=== PATIENT | female | born 1960 | race Caucasian/White ===

== ENCOUNTER 2019-04-16 05:21 | Inpatient (IN) | payer OTHER ==
[2019-04-12 16:55] VITALS: BMI 37.5
--- NOTE | 2019-04-15 22:38 | PREAC ---
Date/Time of Note Date/Time of Note DATE: 04/15/19 TIME: 22:37 Anesthesia Eval and Record Evaluation Time Pre-Procedure Interview DATE: 04/15/19 TIME: 22:37 Age 58 Sex female NPO: 8 hrs (sip h20 with metoprolol and omeprazole) Preoperative diagnosis fibroids, cervical prolapse, cystocele, rectocele Planned procedure LELAND BSO vaginal vault suspension Past Medical History Past Medical History: Includes Cardio: HTN, Dyslipidemia Endo: Diabetes (glucose 123) Neuro: Peripheral neuropathy GI: GERD (no symptoms today), Obesity (bmi 37) Surgery & Anesthesia Issues No known issue Meds Anticoagulation: No Beta Jeremias within 24 hr: Yes Reported Medications Omeprazole* (Omeprazole*) 40 Mg Capsule.dr, 40 MG PO DAILY, #30 CAP 04/16/19 Ibuprofen* (Ibuprofen*) 800 Mg Tab, 800 MG PO Q6H PRN for PAIN, TAB 04/16/19 Aspirin Ec (Aspir 81) 81 Mg Tablet.dr, 81 MG PO DAILY, #30 TAB 04/16/19 Metoprolol Tartrate* (Lopressor*) 25 Mg Tablet, 25 MG PO BID, #60 TAB 04/16/19 Metformin Hcl* (Metformin Hcl*) 500 Mg Tablet, 500 MG PO WITH BREAKFAST DINNE, #30 TAB 04/16/19 Atorvastatin Calcium* (Atorvastatin Calcium*) 20 Mg Tablet, 20 MG PO QHS, #30 TAB 04/16/19 Cholecalciferol (Vitamin D3) (VITAMIN D-3) 2,000 Unit Capsule, 2000 UNIT PO, CAP 04/16/19 Losartan Potassium* (Losartan Potassium*) 50 Mg Tablet, 50 MG PO DAILY, TAB 04/16/19 Discontinued Reported Medications Omeprazole* (Omeprazole*) 40 Mg Capsule.dr, 40 MG PO DAILY, #30 CAP 04/16/19 Meds reviewed: Yes Allergies Coded Allergies: Penicillins (Verified Allergy, Unknown, 04/16/19) codeine (Verified Allergy, Unknown, 04/16/19) Allergies Reviewed: Yes Labs/Studies Labs Reviewed: Reviewed by anesthesiologist test: N/A Studies: ECG, CXR Pre-procedure Exam Airway: Adequate mouth opening, Adequate thyromental dist Mallampati: Mallampati II Teeth: Normal Lung: Normal Heart: Normal ASA Physical Status ASA physical status: 3 Emergency: None Planned Anesthetic General/MAC: ETT Planned Pain Management Parenteral pain med, Local by surgeon Pre-operative Attestations Prior to commencing anesthesia and surgery, the patient was re-evaluated, there was verification of: *The patient's identity *The results of appropriate recent lab work and preoperative vital signs *The above evaluation not changing prior to induction *Anesthetic plan, risk benefits, alternative and complications discussed with patient/family; questions answered; patient/family understands, accepts and wishes to proceed. KARSON DELGADO Apr 15, 2019 22:38
[~2019-04-16] VITALS: Ht 167.6 cm; Wt 103.4 kg
[2019-04-16] VITALS (34 sets, daily range): BP systolic 109–158; BP diastolic 66–94; PULSE 78–110; RESP 11–19; Ht 167.6 cm; Wt 103.4 kg
--- NOTE | 2019-04-16 04:51 | PREOPHP ---
DATE OF ADMISSION: 04/16/2019 HISTORY OF PRESENT ILLNESS: This is a 58-year-old lady, 8, para 5 with 2 abortions and 1 spo ntaneous . Her last normal menstrual period was in 2009. She was admitted for a total TAHBS O and vaginal vault suspension. The patient complains of something coming at introitus. She is know n to have a cervical prolapse. The uterus was noted not to be coming out except only for the cervix that is on the introitus. She also has a first degree rectocele. The patient is bothered and very u ncomfortable for this problem, so she wanted to have the above procedure. The procedures were explai [place] to the patient and she understood everything totally. The risks, benefits, and alternatives were discussed with her as well. PAST MEDICAL HISTORY: No history of TB, asthma. She has a history of diabetes, high blood pressure and arthritis. ALLERGIES: PATIENT IS ALLERGIC TO PENICILLIN. PAST SURGICAL HISTORY: She had arm surgery. FAMILY HISTORY: Mother and father have high blood pressure and father has heart disease. Mother has diabetes. Mother had ovarian cancer. GYNECOLOGIC HISTORY: She had menarche at the age of 11, every 28 days interval, 3 to 4 days duration , and moderate in amount. She is 8, para 5. She had 5 normal deliveries. REVIEW OF SYSTEMS: CARDIOVASCULAR: No chest pains. RESPIRATORY: No cough. GASTROINTESTINAL: No diarrhea, no vomiting. GENITOURINARY: No dysuria. PHYSICAL EXAMINATION: GENERAL: Reveals a conscious, coherent lady and in no acute distress. VITAL SIGNS: Her blood pressure 120/80, pulse rate 80 per minute, respirations 16 per minute. BREASTS, HEART AND LUNGS: Within normal limits. ABDOMEN: Soft. No organomegaly and obese. PELVIC: Revealed the cervix to be at the introitus and the uterus is in the pelvis. The adnexa were negative for masses. RECTAL: Confirmed the pelvic findings. EXTREMITIES: No pedal edema. ADMITTING DIAGNOSES: Cervical prolapse and symptomatic first degree rectocele and obesity. PLAN: The patient was planned to have the above procedures. Dictated By: BLADIMIR HUGO/OMKAR Conf#: [id number] DID#: [id number]
[2019-04-16] MEDS ORDERED: ASPI-535 PO (06:03)
[2019-04-16] MEDS ORDERED: METO25TA4 PO (06:03)
[2019-04-16] MEDS ORDERED: METF500T24 PO (06:03)
[2019-04-16] MEDS ORDERED: LOSA50TA14 PO (06:03)
[2019-04-16] MEDS ORDERED: ATOR20TA38 PO (06:03)
[2019-04-16] MEDS ORDERED: CHOL200073 PO (06:03)
[2019-04-16] MEDS ORDERED: IBUP-1545 PO (06:03)
[2019-04-16] MEDS ORDERED: OMEP40CA6 PO (06:03)
[2019-04-16] MEDS ORDERED: ROCURONIUM 50 MG INJ ONE (06:30)
[2019-04-16] MEDS ORDERED: CLINDAMYCIN 900 MG/D5W (PMX) 50 ML IVPB ONE (06:30)
[2019-04-16] MEDS ORDERED: LIDOCAINE 2% (SDV) 5 ML INJ ONE (06:30)
[2019-04-16] MEDS ORDERED: PROPOFOL 20 ML ONE ×2 (06:30→07:47)
[2019-04-16] MEDS ORDERED: MIDAZOLAM 1 MG/ML 2 ML INJ ONE (06:30)
[2019-04-16] MEDS ORDERED: HYDROmorphONE 2 MG/ML SYG ONE (06:30)
[2019-04-16] MEDS ORDERED: SOD CHLORIDE 0.9% 1,000 ML IV SCH (07:00)
[2019-04-16] MEDS ORDERED: DESFLURANE 15 MIN ONE (07:15)
[2019-04-16] MEDS ORDERED: LIDOCAINE 4% (MPF) 5 ML INJ ONE (07:17)
[2019-04-16] MEDS ORDERED: FAMOTIDINE 20 MG INJ ONE (07:39)
[2019-04-16] MEDS ORDERED: METOCLOPRAMIDE 10 MG INJ ONE (07:39)
[2019-04-16] MEDS ORDERED: DEXAMETHASONE 4 MG/ML 5 ML INJ ONE (07:39)
[2019-04-16] MEDS ORDERED: ONDANSETRON 4 MG INJ ONE (07:39)
[2019-04-16] MEDS ORDERED: MAGNESIUM SULFATE 1 GM/D5W 100 ML ONE (07:46)
[2019-04-16] MEDS ORDERED: ACETAMINOPHEN 500 MG TAB PO PRN (08:30)
[2019-04-16] MEDS ORDERED: MEPERIDINE 25 MG INJ IV PRN (08:30)
[2019-04-16] MEDS ORDERED: ONDANSETRON 4 MG INJ IV PRN ×2 (08:30→09:30)
[2019-04-16] MEDS ORDERED: HYDROmorphONE 0.2 MG/ML PCA IV SCH (08:30)
[2019-04-16] MEDS ORDERED: hydrALAzine 20 MG INJ IV PRN (08:30)
[2019-04-16] MEDS ORDERED: NALOXONE (0.4 MG/ML) INJ IV PRN (08:30)
[2019-04-16] MEDS ORDERED: METOCLOPRAMIDE 10 MG INJ IV PRN (08:30)
[2019-04-16] MEDS ORDERED: LABETALOL HCL 20MG INJ IV PRN (08:30)
[2019-04-16] MEDS ORDERED: OXYCODONE/ACETAMINOPHEN (5/325) TAB PO PRN (08:30)
[2019-04-16] MEDS ORDERED: SUGAMMADEX SODIUM 200 MG/2 ML VIAL IV ONE (08:35)
[2019-04-16] MEDS ORDERED: KETOROLAC 30 MG INJ ONE (08:36)
--- NOTE | 2019-04-16 09:13 | SIPON ---
Date/Time of Note Date/Time of Note DATE: 04/16/19 TIME: 09:06 Operative Report Preoperative Diagnosis cervical prolapse fibroids 1st degree rectocele obesity Postoperative Diagnosis same plus perineal relaxation Operation/Procedure Performed exploratory lap nancy&bso &vaginal vault suspension Surgeon see signature line miller head assistant wet process dr verma Anesthesia: general Estimated blood loss: 100 - 150 ml's Transfusion Required none Specimen 2 parts of cx&BODY OF UTERUS BOTH TUBES &OVARIES Grafts/Implants none Complications none BLADIMIR ECHEVERRIA MD Apr 16, 2019 09:13
[2019-04-16] MEDS ORDERED: LACTATED RINGER'S 1,000 ML IV SCH (09:14)
[2019-04-16] MEDS ORDERED: HYDROmorphONE 1 MG/5 ML IV SYRINGE IV ONE (09:30)
[2019-04-16] MEDS ORDERED: HYDROmorphONE 1 MG/5 ML IV SYRINGE IV PRN ×3 (10:00)
--- NOTE | 2019-04-16 10:13 | PAC ---
Date/Time of Note Date/Time of Note DATE: 04/16/19 TIME: 10:13 Post-Anesthesia Notes Post-Anesthesia Note Last documented vital signs Vital Signs Date Temp Pulse Resp B/P (MAP) Pulse Ox O2 O2 Flow FiO2 Time Delivery Rate 04/16/19 98.6 80 16 140/84 96 Mask 6.0 09:05 (102) Activity: WNL Respiratory function: WNL Cardiovascular function: WNL Mental status: Baseline Pain reasonably controlled: Yes Hydration appropriate: Yes Nausea/Vomiting absent: Yes KARSON DELGADO Apr 16, 2019 10:13
[2019-04-16] MEDS: DEXTROSE 5%-LR 1,000 ML IV SCH ×2 (11:08→18:53)
[2019-04-16] MEDS ORDERED: GLUCAGON 1 MG INJ IM PRN (12:30)
[2019-04-16] MEDS ORDERED: GLUCOSE GEL 15 GRAM TUBE PO PRN ×2 (12:30)
[2019-04-16] MEDS ORDERED: DEXTROSE 50% 50 ML SYRINGE IV PRN ×2 (12:30)
[2019-04-16] MEDS ORDERED: GLUCOSE GEL 15 GRAM TUBE BUCCAL PRN (12:30)
[2019-04-16] MEDS: INSULIN ASPART [NOVOLOG] 3 ML PEN SC SCH ×3 (15:07→20:51)
--- NOTE | 2019-04-16 19:26 | OPR ---
DATE OF OPERATION: 04/16/2019 PREOPERATIVE DIAGNOSES: 1. Cervical prolapse. 2. First degree rectocele. 3. Perineal relaxation. 4. Obesity. 5. Fibroid uterus. POSTOPERATIVE DIAGNOSES: 1. Cervical prolapse. 2. First degree rectocele. 3. Perineal relaxation. 4. Obesity. 5. Fibroid uterus. SURGEON: Clemencia Cobb MD YARN COMBER: Nahco Wu MD ANESTHESIA: General. OPERATION PERFORMED: Exploratory laparotomy, total abdominal hysterectomy and bilateral salpingo-oop horectomy, vaginal vault suspension. OPERATIVE TECHNIQUE: Under general anesthesia, the patient was prepped and draped in the usual fashi on for abdominal surgery. After checking for the effect of the anesthesia, a Pfannenstiel incision, 14 cm skin incision, was performed. The incision was carried from the skin up to the fascia. Upon o pening the skin up to the fascia, small blood vessels were noted to be oozing and these were all caut erized. The fascia was opened transversely followed by splitting the muscles vertical and the perito neum vertically. Upon opening the abdominal cavity, the upper abdominal organs were palpated. They were within normal limits. Then, the self-retaining retractor was put in place. The bladder blade w as put in place. The bowels were packed away from the operative field with the aid of 5 wet lap spon ges and the upper blade was put in place. The uterus was pulled out from the pelvic cavity with the aid of a single tooth tenaculum. It was noted to be about 12 weeks' size with multiple fibroids note d. Then, two 8-inch Kochers were placed at each paratubal and paraovarian ligament on both sides for traction. The left round ligament was grasped with 2 Kochers then cut. A stick tie with 0 Vicryl w as used and tagged. The left broad ligament was skeletonized for the development of the bladder flap and then the left infundibulopelvic ligament was grasped with 2 Angel clamps and pulled back with a straight Gracie and cut. At first, a free tie with 0 Vicryl was used followed by Angel suture. Bl eeders were checked and there was no bleeding noted. Same thing was done on the right side. The rig ht round ligament was grasped with 2 Kochers and cut. A stick tie with 0 Vicryl was used and tied. The right broad ligament was skeletonized for the development of the bladder flap. The right infundi bulopelvic ligament was grasped with 2 Angel clamps and pulled back with a straight Gracie and cut. At first, a free tie with 0 Vicryl was used followed by Angel suture. Bleeders were checked and th ere was no bleeding noted. Once again, the broad ligament on both sides was skeletonized for develop ment of the bladder flap. Then, the bladder was from the cervix by sharp and blunt dissect ion. Then, the left uterine vessels were brought to view. The left uterine vessels were grasped wit h 2 Angel clamps and pulled back with a straight Gracie and cut. A stick tie with 0 Vicryl was used on its clamp. Bleeders were checked and there was no bleeding noted. Same thing was done on the ri ght side. No bleeding was noted. Once again, the bladder was from the cervix by sharp and blunt dissection. Two more Kochers were placed at each paracervical tissue on the left and right si de and on each Gracie, the tissue was cut and a stick tie with 0 Vicryl was used. Bleeders were chec ked and there was no bleeding noted. The pelvis was noted to be very deep. The body of the uterus w as excised and the remaining cervix was grasped with 2 single tooth tenaculum. Once again, the bladd er was from the cervix by sharp and blunt dissection. About 4 more Kochers were placed at its paracervical tissue on the left and right side and on each Gracie, the tissue was cut and a stick tie with 0 Vicryl was used. Bleeders were checked and there was no bleeding noted. As mentioned, t he pelvis was noted to be very deep. Then, another piece of cervix was excised and the remaining cer vix was grasped with 2 single tooth tenaculum. Once again, the bladder was from the cervix by sharp and blunt dissection. Four more Kochers were placed at its paracervical tissue on the left and right side and on each Gracie, the tissue was cut and a stick tie with 0 Vicryl was used. Bleed ers were checked and there was no bleeding noted. The left uterosacral ligament was grasped with Koc her and cut. A stick tie with 0 Vicryl was used and tied. Same thing was done on the right side and then the cervical vaginal angle was brought to view. The cervical vaginal angle was grasped with 2 Angel clamps and then the remaining cervix was excised. Angel suture was placed on each clamp. An other continuous suture with 0 Vicryl was used at the vaginal cuff to reinforce the first suture that was put in. The right angle of the vagina was sutured with the right paracervical tissue and after checking for any bleeders in which there were none, in turn tied with the right ligament for vaginal vault suspension. Same thing was done on the left side. Again, bleeders were checked and there was no bleeding noted. Irrigation was done to check for any bleeders and there was no bleeding noted. A ll the stumps were checked for any bleeders and there was no bleeding noted. Then after checking for the bleeders in which there were none, 2 Surgicel was left at the raw area at the vaginal cuff and o n the stump. Then after correct sponge count, needle count and instrument count as confirmed by the business services tech and precinct police sergeant, the abdomen was closed in the usual fashion using 0 Vicryl for the periton eum, 0 Vicryl for the muscles. For the fascia, 0 Vicryl continuous stitch was used followed by few f [id number] sutures. For the subcutaneous tissue, it was closed with 3-0 Vicryl and the skin was closed with 3-0 Vicryl, subcuticular suture was used. The patient tolerated the procedure well. Est imated blood loss about was 200 mL. Vital signs were stable during and after the procedure. The rom soledad was as mentioned has multiple fibroids noted and uterus was about 12 weeks' size. Dictated By: CLEMENCIA HUGO/OMKAR Conf#: [id number] DID#: [id number]
[2019-04-17] MEDS: INSULIN ASPART [NOVOLOG] 3 ML PEN SC SCH ×6 (00:58→21:00)
[2019-04-17] MEDS ORDERED: ACCU-CHEK XX SCH (02:00)
[2019-04-17] MEDS: DEXTROSE 5%-LR 1,000 ML IV SCH ×3 (03:31→21:52)
[2019-04-17 03:41] VITALS: BP 138/74; PULSE 92; RESP 20
[2019-04-17] MEDS ORDERED: BISACODYL 10 MG SUPP PR ONE ×2 (06:00→17:00)
[2019-04-17] MEDS ORDERED: MAGNESIUM HYDROXIDE 30ML CUP PO ONE ×2 (06:00→17:00)
[2019-04-17 08:20] VITALS: BP 138/73; PULSE 94; RESP 20
[2019-04-17] MEDS ORDERED: HYDROmorphONE 0.5 MG/0.5 ML SYG IV PRN (08:30)
[2019-04-17] MEDS ORDERED: LACTULOSE 30ML CUP PO ONE (13:00)
[2019-04-17] MEDS: OXYCODONE/ACETAMINOPHEN (5/325) TAB PO PRN ×2 (15:07→20:52)
[2019-04-17] MEDS ORDERED: IBUPROFEN 800 MG TAB PO PRN (18:00)
[2019-04-17 19:35] VITALS: BP 177/90; PULSE 88; RESP 20
[2019-04-17 21:57] VITALS: BP 155/78; PULSE 95; RESP 16
[2019-04-18] VITALS (8 sets, daily range): BP systolic 147–180; BP diastolic 79–88; PULSE 87–100; RESP 16–20
[2019-04-18] MEDS: INSULIN ASPART [NOVOLOG] 3 ML PEN SC SCH ×5 (01:00→20:19)
[2019-04-18] MEDS: OXYCODONE/ACETAMINOPHEN (5/325) TAB PO PRN ×3 (02:34→12:58)
[2019-04-18] MEDS: DEXTROSE 5%-LR 1,000 ML IV SCH ×2 (05:56→12:59)
[2019-04-18] MEDS ORDERED: BISACODYL 10 MG SUPP PR ONE (08:30)
[2019-04-18] MEDS ORDERED: hydrALAzine 20 MG INJ IV ONE (08:30)
[2019-04-18] MEDS ORDERED: MAGNESIUM HYDROXIDE 30ML CUP PO ONE (08:30)
[2019-04-18] MEDS: METOPROLOL 25 MG TAB PO SCH ×2 (08:59→20:16)
[2019-04-18] MEDS ORDERED: LOSARTAN 50 MG TAB PO SCH (09:00)
--- NOTE | 2019-04-21 17:45 | PN ---
DATE: 04/17/2019 TIME: 8:50 a.m. SUBJECTIVE: The patient complains of incisional pain. She has no gas per rectum and no bowel moveme nt. OBJECTIVE: VITAL SIGNS: She is afebrile. Vital signs stable. LUNGS: Clear. HEART: Normal sinus rhythm. ABDOMEN: Soft. Bowel sounds present. No distention. Wound dry and clean. EXTREMITIES: No calf tenderness. ASSESSMENT AND PLAN: Postoperative day 1. PLAN: Advance diet as tolerated. Repeat Dulcolax suppository and milk of brian akins. Long di scussion with the patient about her procedure and the plans for her. Dictated By: BLADIMIR ECHEVERRIA MD NS/NTS Conf#: [id number] DID#: [id number] CC: BLADIMIR ECHEVERRIA MD;*EndCC*
--- NOTE | 2019-04-21 17:46 | PN ---
DATE: 04/18/2019 TIME OF PROGRESS NOTE: 11:15 a.m. SUBJECTIVE: The patient feels better. She had a little bowel movement but is passing a lot of gas. She has less incisional pain. OBJECTIVE: VITAL SIGNS: She is afebrile. Vital signs stable. ABDOMEN: Soft. Bowel sounds good and dry. No distention. EXTREMITIES: No calf tenderness. ASSESSMENT: Postoperative day 2. PLAN: Home tonight. Continue to observe. Patient was counseled. She was instructed. She has pain medication that was given to her prior to surgery. She will come back to the clinic in 2 weeks. Nayeli carrera was discharged home in good state. She will be discharged unless she has problem with bowel moveme nt. Dictated By: BLADIMIR ECHEVERRIA MD NS/NTS Conf#: [id number] DID#: [id number] CC: BLADIMIR ECHEVERRIA MD;*EndCC*
== END 2019-04-18 20:54 | disposition home or self-care (01) | DRG 743 ==
LOC: REC 05:21 → MS1 10:34
PROVIDERS: ADMIT Obstetrics & Gynecology; ATTEND Obstetrics & Gynecology
PROC: 0UT20ZZ Resection of Bilateral Ovaries, Open Approach (ICD-10-PCS; 2019-04-16)
PROC: 0USG0ZZ Reposition Vagina, Open Approach (ICD-10-PCS; 2019-04-16)
PROC: 0UT90ZZ Resection of Uterus, Open Approach (ICD-10-PCS; principal; 2019-04-16 07:30)
DX: N81.89 Other female genital prolapse (principal); E11.42 Type 2 diabetes mellitus with diabetic polyneuropathy; N81.2 Incomplete uterovaginal prolapse; I10 Essential (primary) hypertension; E78.5 Hyperlipidemia, unspecified; E11.9 Type 2 diabetes mellitus without complications; K21.9 Gastro-esophageal reflux disease without esophagitis; D25.1 Intramural leiomyoma of uterus; D25.2 Subserosal leiomyoma of uterus; Z79.4 Long term (current) use of insulin
CPT/HCPCS: 80053; 82962; 84702; 85025; 86850; 86900; 86901; 87086; 88307; J0360; J1100; J1170; J1815; J1885; J2250; J2405; J2765; J3475; J7121

== ENCOUNTER 2019-04-21 16:46 | Inpatient (IN) | payer OTHER ==
[~2019-04-21] VITALS: Ht 167.6 cm; Wt 96.1 kg
[~2019-04-21 16:46] MED LIST: ASPI-535 PO; ATOR20TA38 PO; CHOL200073 PO; IBUP-1545 PO; LOSA50TA14 PO; METF500T24 PO; METO25TA4 PO; OMEP40CA6 PO
[2019-04-21] MEDS ORDERED: SODIUM CHLORIDE 0.9% 1L BAG IV* STA (17:00)
[2019-04-21] MEDS ORDERED: LEVOFLOXACIN 500MG/D5W (PMX) 100 ML IVPB STA (17:00)
[2019-04-21] MEDS ORDERED: VANCOMYCIN 1 GM (PMX) 250 ML IVPB STA (17:00)
[2019-04-21] MEDS ORDERED: metroNIDAZOLE 500 MG/NS (PMX) 100 ML IVPB STA (17:00)
--- NOTE | 2019-04-21 17:07 | ERD ---
ER Documentation Chief Complaint Chief Complaint SOB TODAY, HYSTERECTOMY 4 DAYS AGO, ALSO SHOULDER PAIN HPI 58-year-old female history of diabetes, hypertension, hyperlipidemia, GERD, peripheral neuropathy, obesity and cervical prolapse status post LELAND/BSO on 04/16/2019 presents to the ED complaining of a 1 day history of increasing, sharp, right chest pain with shortness of breath and subjective fevers. Denies chest pain or palpitations. Mild, diffuse, upper abdominal pain but no nausea, vomiting, diarrhea or constipation. Denies dysuria, polyuria, hematuria or flank pain. No leg pain or swelling. Subjective fevers and chills. ROS All systems reviewed and are negative except as per history of present illness. Medications Home Meds Reported Medications Omeprazole* (Omeprazole*) 40 Mg Capsule.dr, 40 MG PO DAILY, #30 CAP 04/16/19 Ibuprofen* (Ibuprofen*) 800 Mg Tab, 800 MG PO Q6H PRN for PAIN, TAB 04/16/19 Aspirin Ec (Aspir 81) 81 Mg Tablet.dr, 81 MG PO DAILY, #30 TAB 04/16/19 Metoprolol Tartrate* (Lopressor*) 25 Mg Tablet, 25 MG PO BID, #60 TAB 04/16/19 Metformin Hcl* (Metformin Hcl*) 500 Mg Tablet, 500 MG PO WITH BREAKFAST DINNE, #30 TAB 04/16/19 Atorvastatin Calcium* (Atorvastatin Calcium*) 20 Mg Tablet, 20 MG PO QHS, #30 TAB 04/16/19 Cholecalciferol (Vitamin D3) (VITAMIN D-3) 2,000 Unit Capsule, 2000 UNIT PO, CAP 04/16/19 Losartan Potassium* (Losartan Potassium*) 50 Mg Tablet, 50 MG PO DAILY, TAB 04/16/19 Discontinued Reported Medications Omeprazole* (Omeprazole*) 40 Mg Capsule.dr, 40 MG PO DAILY, #30 CAP 04/16/19 Allergies Allergies: Coded Allergies: Penicillins (Verified Allergy, Unknown, 04/21/19) codeine (Verified Allergy, Unknown, 04/21/19) PMhx/Soc History of Surgery: Yes (LT FOREARM PLATE & SCEWS X2/ BLADDER LIFT/) Hx Neurological Disorder: Yes (Peripheral neuropathy) Hx Cardiac Disorders: Yes (Hypertension) Hx Miscellaneous Medical Probl: Yes (Diabetes, hyperlipidemia, GERD) Hx Substance Use: No FmHx Family history relevant to presenting complaint Physical Exam Vitals Vital Signs Date Temp Pulse Resp B/P (MAP) Pulse Ox O2 O2 Flow FiO2 Time Delivery Rate 04/21/19 102.8 135 23 147/82 97 Room Air 18:30 (103) 04/21/19 102.8 17:53 04/21/19 102.8 138 23 147/78 97 Room Air 17:10 (101) 04/21/19 100.6 143 28 161/82 94 16:50 (108) Physical Exam Const: Alert. Moderate to severe distress Head: Atraumatic Eyes: Anicteric. Normal Conjunctiva ENT: Normal External Ears, Nose and Mouth. Pharynx clear without erythema or exudate. MM moist. Neck: Nontender. No lymphadenopathy. Full range of motion. No meningismus. Resp: Tachypnea. BS diminished at the bases. Clear to auscultation bilaterally. No rales or rhonchi. Cardio: Tachycardic. Regular rate and rhythm, no murmurs Abd: Soft, obese. Diffuse, moderate tenderness localizes to RLQ > RUQ. Distended. No guarding. Mils rebound. Normal bowel sounds Skin: No petechiae or rashes Back: No midline or CVA tenderness Ext: No cyanosis, or edema. No calf swelling or tenderness. Neur: Awake and alert. No focal deficit. Psych: Anxious but not depressed. Result Diagram: 04/23/1925 04/23/1925 Results 24 hrs Laboratory Tests Test 04/21/19 17:15 04/21/19 17:16 04/21/19 17:17 POC Venous Lactate 4.2 mmol/L Prothrombin Time 14.7 Sec Prothrombin Time Ratio 1.1 INR International 1.14 Normalized Ratio Activated Partial Thromboplast 32.0 Sec Time D-Dimer 5604.74 ng/ml D-Dimer Comment Sodium Level 139 mmol/L Potassium Level 3.4 mmol/L Chloride Level 102 mmol/L Carbon Dioxide Level 24 mmol/L Anion Gap 13 Blood Urea Nitrogen 16 mg/dl Creatinine 0.89 mg/dl Est Glomerular Filtrat > 60 mL/min Rate mL/min Glucose Level 164 mg/dl Calcium Level 9.0 mg/dl Total Bilirubin 0.9 mg/dl Direct Bilirubin 0.00 mg/dl Indirect Bilirubin 0.9 mg/dl Aspartate Amino 27 IU/L Transf (AST/SGOT) Alanine 20 IU/L Aminotransferase (ALT/SGPT) Alkaline Phosphatase 184 IU/L Troponin I < 0.012 ng/ml Total Protein 7.6 g/dl Albumin 3.7 g/dl Globulin 3.90 g/dl Albumin/Globulin Ratio 0.94 White Blood Count 21.6 10^3/ul Red Blood Count 4.19 10^6/ul Hemoglobin 11.8 g/dl Hematocrit 37.0 % Mean Corpuscular Volume 88.3 fl Mean Corpuscular Hemoglobin 28.2 pg Mean Corpuscular 31.9 g/dl Hemoglobin Concent Red Cell Distribution Width 14.5 % Platelet Count 345 10^3/UL Mean Platelet Volume 10.9 fl Immature Granulocytes % 0.800 % Neutrophils % 83.9 % Lymphocytes % 6.7 % Monocytes % 7.7 % Eosinophils % 0.7 % Basophils % 0.2 % Nucleated Red Blood Cells % 0.0 /100WBC Immature Granulocytes # 0.180 10^3/ul Neutrophils # 18.2 10^3/ul Lymphocytes # 1.4 10^3/ul Monocytes # 1.7 10^3/ul Eosinophils # 0.2 10^3/ul Basophils # 0.1 10^3/ul Nucleated Red Blood Cells # 0.0 10^3/ul Urine Color SANDRINE Urine Clarity CLEAR Urine pH 5.0 Urine Specific [place] 1.028 Urine Ketones NEGATIVE mg/dL Urine Nitrite NEGATIVE mg/dL Urine Bilirubin NEGATIVE mg/dL Urine Urobilinogen NEGATIVE mg/dL Urine Leukocyte Esterase NEGATIVE Jatin/ul Urine Microscopic RBC 4 /HPF Urine Microscopic WBC 3 /HPF Urine Squamous Epithelial Cells FEW /HPF Urine Bacteria FEW /HPF Urine Mucus FEW /HPF Urine Hemoglobin 1+ mg/dL Urine Glucose NEGATIVE mg/dL Urine Total Protein 1+ mg/dl Current Medications Medications Dose Sig/Samira Start Time Status Last (Trade) Ordered Route PRN Stop Time Admin Dose Reason Admin Sodium 1,780 ml BOLUS OVER 2 04/21/19 DC 04/21/19 Chloride HOURS STAT 17:00 17:23 (NS) IV* 04/21/19 17:07 Vancomycin 250 ml @ ONCE STAT 04/21/19 DC 04/21/19 HCl 125 mls/hr IVPB 17:00 19:00 04/21/19 18:59 100 ml @ ONCE STAT 04/21/19 DC 04/21/19 Levofloxacin/ 100 mls/hr IVPB 17:00 17:24 Dextrose 04/21/19 17:59 100 ml @ ONCE STAT 04/21/19 DC 04/21/19 Metronidazole 100 mls/hr IVPB 17:00 18:10 04/21/19 17:59 650 mg ONCE ONCE 04/21/19 DC 04/21/19 Acetaminophen PO 18:00 17:53 (Tylenol 04/21/19 18:01 Tab) 50 ml @ 50 ONCE ONCE 04/21/19 DC 04/21/19 Levofloxacin/ mls/hr IVPB 18:30 19:30 Dextrose 04/21/19 19:29 IV Flush 10 ml STK-MED 04/21/19 DC 04/21/19 (NS 10 ml) ONCE .ROUTE 18:22 19:11 04/21/19 18:23 Sodium 100 ml @ ud STK-MED 04/21/19 DC 04/21/19 Chloride ONCE .ROUTE 18:22 19:11 04/21/19 18:23 Iohexol 150 ml STK-MED 04/21/19 DC 04/21/19 (Omnipaque ONCE .ROUTE 18:22 19:11 300mg/ ml) 04/21/19 18:23 Iohexol 30 ml STK-MED 04/21/19 DC (Omnipaque ONCE .ROUTE 18:36 300mg/ ml) 04/21/19 18:37 Procedures/MDM DOCUMENTS REVIEWED: ED nurse, prior records EKG: Time: 1724. Sinus tachycardia. Ventricular rate 144. Normal NH QRS. Nonspecific ST-T wave changes. No acute ST segment elevation depression. No ectopy. My Interpretation IMAGING: PROCEDURE: XR Chest. CLINICAL INDICATION: Chest pain. TECHNIQUE: Single frontal view. COMPARISON: None. FINDINGS: There is mild left basilar atelectasis. The lungs are otherwise clear. The heart size is normal. There is no pleural effusion. There is no pneumothorax. IMPRESSION: 1. Mild left basilar atelectasis. 2. Otherwise unremarkable chest radiograph. RPTAT: QQ .Horacio Peoples MD, MD Date Time Electronically viewed and signed by .Horacio Peoples MD, MD on 04/21/2019 17:45 .R/ PROCEDURE: CT abdomen and pelvis with contrast. CLINICAL INDICATION: Abdominal pain, postop, with fever. TECHNIQUE: CT scan of the abdomen and pelvis with contrast was performed. C oronal and sagittal images were also reformatted. 115 cc Omnipaque -300 intravenous contrast was administered without complication. DICOM images are available. One or more of the following dose reduction techniques were used: Automated exposure control, adjustment of the mA and/or kV according to patient size, use of iterative reconstruction technique. Total exam CTDIvol = 71.99 mGy and DLP = 1901.88 mGy-cm. COMPARISON: None. FINDINGS: Visualized lower thorax: Please see the separate CT angiogram chest report Liver, gallbladder, pancreas and spleen: Mild hepatic steatosis is suggested with normal liver size and contour. There is no evidence for liver mass or ductal dilatation. The gallbladder is distended with calcified gallstones consistent with cholelithiasis but no evidence of cholecystitis. An incidental phrygian cap is present. No common bile duct dilatation is evident. The pancreas is normal. Mild splenomegaly of 14 cm is noted without splenic mass or infarct. Adrenal glands and genitourinary system: The adrenal glands are normal bilaterally. Mild bilateral renal cortex scarring is seen without acute pyelonephritis, mass, calculus or hydronephrosis. The ureters are unremarkable. The urinary bladder shows no abnormality. Hysterectomy changes are noted. Posterior to the pelvic clips and anterior to the rectum with in the center of the pelvis are multiple punctate foci of gas with a peripherally enhancing and centrally hypodense parentheses 10 HU) collection that may reflect a postoperative seroma however, given the provided history of fever, a p ostoperative abscess is of concern, the abnormality estimated at 7.6 x 7 x 6.9 cm in AP, transverse and cranial caudal dimensions respectively (series 6 image 171). Gastrointestinal system: A [id number]-[id number] sliding hiatal hernia is present, the remainder of the stomach is unremarkable. There is no evidence of obstruction, ileus or inflammation. The appendix and surrounding fat are normal . A few diverticula of the colon are present but there is no evidence for diverticulitis or colitis. A small fat-containing umbilical hernia is noted. Peritoneum, retroperitoneum, vessels and lymph nodes: The abdominal aorta is normal in caliber. There is mild aortic atherosclerotic calcification. Inferior vena cava is normal in caliber. There is no evidence for adenopathy. The peritoneal cavity is normal with no evidence for ascites. There is no evidence of pneumoperitoneum. Osseous structures and musculoskeletal system: There is no evidence for acute osseous abnormality or muscular pathology. Degenerative disc disease is greatest at L4-5 and L5-S1. No subcutaneous abnormalities are present. RPTAT:HJJR IMPRESSION: 1. Changes of hysterectomy with a peripherally enhancing centrally hypodense collection centered in the pelvis having punctate foci of internal gas and raising concern for an abscess given the provided history of fever, the abnormality estimated at 7.6 x 7 x 6.9 cm located anterior to the rectum. Consider consultation to determine if the patient may be a candidate for percutaneous drainage/aspiration. Results are conveyed to the patient's health care providers through the [employer] technology shortly after the study is dictated. 2. Mild hepatic steatosis. 3. Cholelithiasis without cholecystitis. 4. Mild splenomegaly. 5. Bilateral renal cortex scarring without acute pyelonephritis. 6. Cxdagjnl-va-ferus hiatal hernia. 7. Aortic atherosclerosis is present. 8. Degenerative disc disease at L4-5 and L5-S1. 9. Small fat-containing umbilical hernia. Physician Gordy Date Time Electronically viewed and signed by Physician Gordy on 04/21/2019 19:20 JR/ [employer] DECISION MAKIN-year-old female history of diabetes, hypertension, hyperlipidemia, GERD, peripheral neuropathy, obesity and cervical prolapse status post LELAND/BSO on 04/16/2019 presents to the ED complaining of a 1 day history of increasing, sharp, right chest pain with shortness of breath and subjective fevers. CBC to evaluate for leukocytosis and anemia reveals WBC of 21.6 and mild anemia but no thrombocytopenia. Chemistry negative for significant electrolyte abnormality, renal insufficiency or hyperglycemia. Chest x-ray shows atelectasis but no effusions, infiltrate, pneumonia, pneumothorax or CHF. CT of the abdomen pelvis with intravenous contrast reveals a fluid collection anterior to the rectum suspicious for abscess. Multiple SIRS criteria including fever, leukocytosis, tachycardia and tachypnea. Umbag-vh-ifdp lactate is 4.2 mmol/L consistent with septic shock. NS fluid bolus and antibiotics after cultures. Findings discussed with Dr. Cobb. She has decided to treat with intravenous antibiotics and reevaluate tomorrow. Patient's infectious symptoms have not stabilized and the patient is at risk of rapid decompensation. The patient will be admitted to telemetry for careful hydration, antibiotic therapy, and infectious source control. Severe Sepsis criteria: Infectious source: Intra-abdominal End organ damage indicated by: Lactate > 2.0 mmol/L Sepsis Management: Time of recognition of severe sepsis: 17:15 Within 3 hours of recognition: Blood cultures x 2 before broad-spectrum antibiotics: Yes 30 ml/kg NS bolus based on ideal body weight in this patient with a BMI of 35.6 Completed Initial lactate 4.2 mmol/L Repeat lactate 2.0 mmol/L Septic Shock Assessment: Any lactic acid > 4.0 Yes Persistent hypotension (SBP < 90 or 40 mmHg drop, MAP < 65) despite 30 mL/kg IV fluid bolus: No Central line Not Indicated CALLS/CONSULTS: Time: 18:00, Dr. Cobb who has evaluated the patient in the emergency department. Accepting Care Team Current data and ongoing care discussed. PATIENT CARE TRANSITIONED: Time: 19:10, Dr. Shaw. Critical Care Time: 35 minutes Treatments/Evaluations: Close monitoring and treatment of unstable vital signs, cardiorespiratory, and neurologic status, while maintaining tight balance of fluid, respiratory, and cardiac interventions. This includes the administration of emergency fluid management while maintaining close respiratory support as well as the provision of immediate and broad-spectrum antibiotic therapy, while performing a simultaneous assessment for possible sources in order to direct targeted therapy. This time includes discussing the case with the patient and the patient's family. This time also includes the consideration for invasive and chemical support to prevent cardiopulmonary collapse. This time does not include all procedures stated elsewhere in this record. This time also includes reviewing old records, labs and radiological studies. This time includes examining and re-examining the patient. Additionally, this time also includes arranging care with admitting and consulting physicians. Counseled patient and family regarding diagnosis, diagnostic results and plan for admission. Departure Diagnosis: Primary Impression: Septic shock Additional Impressions: SIRS (systemic inflammatory response syndrome) Status post hysterectomy Intra-abdominal fluid collection Cholelithiasis Cholelithiasis location: gallbladder Cholecystitis presence: without cholecystitis Biliary obstruction: without biliary obstruction Qualified Codes: K80.20 - Calculus of gallbladder without cholecystitis without obstruction Condition: Serious GORDO ISBELL MD Apr 21, 2019 17:07
[2019-04-21] MEDS ORDERED: ACETAMINOPHEN 325 MG TAB PO ONE (18:00)
[2019-04-21] MEDS ORDERED: SOD CHLORIDE 0.9% 100 ML ONE (18:22)
[2019-04-21] MEDS ORDERED: IOHEXOL 300MG/ML 150 ML BTL ONE (18:22)
[2019-04-21] MEDS ORDERED: LEVOFLOXACIN 250MG/D5W (PMX) 50 ML IVPB ONE (18:30)
[2019-04-21] MEDS ORDERED: IOHEXOL 300MG/ML 30 ML BTL ONE (18:36)
[2019-04-21] MEDS ORDERED: ONDANSETRON 4 MG INJ IV PRN ×2 (19:30→22:00)
[2019-04-21] MEDS ORDERED: ACETAMINOPHEN 325 MG TAB PO PRN (19:30)
[2019-04-21] MEDS ORDERED: KETOROLAC 15 MG INJ IV STA (19:50)
[2019-04-21] MEDS ORDERED: NACL 0.9% 3 ML SYG IV SCH (22:00)
[2019-04-21] MEDS ORDERED: DOCUSATE SODIUM 100 MG CAP PO PRN (22:00)
[2019-04-21] MEDS ORDERED: SOD CHLORIDE 0.9% 500 ML IV ONE (22:00)
[2019-04-21] MEDS ORDERED: VANCOMYCIN IV PER PHARMACY XX SCH (22:00)
--- NOTE | 2019-04-21 22:11 | PREOPHP ---
DATE OF ADMISSION: 04/21/2019 HISTORY OF PRESENT ILLNESS: This is a 58-year-old lady, 8, para 5 with 2 abortions and 1 spo ntaneous . Her last normal menstrual period was in 2009. She was seen at the emergency room by me because I was called by the emergency room doctor that this patient started to have a right lo wer quadrant pain radiating to the right upper abdomen to the upper chest and right arm. This patien t had a total abdominal hysterectomy, bilateral salpingo-oophorectomy, vaginal vault suspension on for cervical prolapse, first degree rectocele, perineal relaxation and a fibroid uterus. Th e patient did have a good postoperative course. The diet was advanced from liquid to general diet. On the second postoperative day, the patient felt good and had good bowel movement and no complaint a nd no chest pain, so she was discharged home. Her CBC was stable on the first and second postoperati ve day and hematocrit and hemoglobin were noted. PAST MEDICAL HISTORY: No history of TB or asthma. She has a history of diabetes, high blood pressur e and arthritis. ALLERGIES: PENICILLIN. PAST SURGICAL HISTORY: She had arm surgery before. FAMILY HISTORY: Mother and father have high blood pressure and father has heart disease. Mother has diabetes and had ovarian cancer. GYNECOLOGIC HISTORY: She had menarche at the age of 11, every 28 days interval, 3 to 4 days duration , and moderate in amount. She is 8, para 5 with 5 normal deliveries. REVIEW OF SYSTEMS: CARDIOVASCULAR: No chest pains. RESPIRATORY: When I saw the patient, there is no shortness of breath. GASTROINTESTINAL: No diarrhea, no vomiting. GENITOURINARY: No dysuria. PHYSICAL EXAMINATION: GENERAL: Reveals a conscious, coherent lady and in no acute distress. VITAL SIGNS: Her blood pressure 140/90, pulse rate 135 per minute and respiration 18 per minute. BREASTS: No masses felt. LUNGS: There are rales noted at the base of the lungs. ABDOMEN: Soft and wound dry and clean. There is some ecchymosis noted on the lower mid portion of t he abdomen above the incision measuring about 5 x 5 cm. BACK: No tenderness noted. EXTREMITIES: No calf tenderness. IMPRESSION: This patient is a post-LELAND and BSO and vaginal vault suspension 5 days with sepsis. Her WBC in the emergency room is 20,000. She had a fever on admission of 100.6. The patient was having no more pain as she was given pain medication. When I arrived at the emergency room, I reviewed the CT of the abdomen with the radiologist. The CT of the chest showed some bilateral lobar atelectasis . She has some gallstones and radiologist wanted to have an abdominal ultrasound to further describe where the gallstones were. There is no pneumonia according to the radiologist and PE according to h im cannot be ruled out. She has hiatal hernia as well in the lower abdomen. There is no sign of hem atoma on the pelvis. There is a little amount of fluid in the pelvis. There is no sign of abscess o n the subcutaneous tissue. ASSESSMENT: TAHBSO and vaginal vault suspension 5 days, rule out cholecystitis, also atelectasis and also hiatal hernia. PLAN: The patient was put on Flagyl, Levaquin and vancomycin. The plans were explained to the patie nt and to her family and all understood everything totally. Dictated By: BLADIMIR HUGO/OMKAR Conf#: [id number] DID#: [id number]
[2019-04-21] MEDS ORDERED: GLUCAGON 1 MG INJ IM PRN (22:30)
[2019-04-21] MEDS ORDERED: GLUCOSE GEL 15 GRAM TUBE PO PRN ×2 (22:30)
[2019-04-21] MEDS ORDERED: DEXTROSE 50% 50 ML SYRINGE IV PRN ×2 (22:30)
[2019-04-21] MEDS ORDERED: GLUCOSE GEL 15 GRAM TUBE BUCCAL PRN (22:30)
[2019-04-21] MEDS: MEROPENEM 1 GM/50ML(PMX) 50 ML IVPB SCH (22:36)
[2019-04-21] MEDS: SOD CHLORIDE 0.9% 1,000 ML IV SCH (22:36)
[2019-04-21] MEDS ORDERED: VANCOMYCIN 1 GM 250 ML IVPB SCH (23:30)
[2019-04-22] VITALS (7 sets, daily range): BP systolic 138–185; BP diastolic 73–89; PULSE 89–102; RESP 16–19; Ht 167.6 cm; Wt 96.1 kg
[2019-04-22] MEDS: ACCU-CHEK XX SCH (02:00)
[2019-04-22] MEDS: PANTOPRAZOLE (EC) 40 MG TAB PO SCH (05:49)
[2019-04-22] MEDS: INSULIN ASPART [NOVOLOG] 3 ML PEN SC SCH ×4 (08:00→21:00)
[2019-04-22] MEDS: SOD CHLORIDE 0.9% 1,000 ML IV SCH ×2 (08:06→17:34)
[2019-04-22] MEDS: MEROPENEM 1 GM/50ML(PMX) 50 ML IVPB SCH ×2 (08:06→21:23)
[2019-04-22] MEDS ORDERED: POTASSIUM CHLORIDE (SR) 20 MEQ TAB PO STA (10:39)
--- NOTE | 2019-04-22 10:39 | QN ---
Documentation Comment pt seen and examined ANITRA IVAN MD Apr 22, 2019 10:39
[2019-04-22] MEDS ORDERED: traMADol 50 MG TAB NGT PRN (11:00)
[2019-04-22] MEDS ORDERED: KETOROLAC 30 MG INJ IV PRN (11:00)
[2019-04-22] MEDS: VANCOMYCIN 1 GM 250 ML IVPB SCH (12:09)
[2019-04-22] MEDS: METOPROLOL 25 MG TAB PO SCH ×2 (12:10→21:23)
[2019-04-22] MEDS: ASPIRIN (EC) 81 MG TAB PO SCH (12:10)
[2019-04-22] MEDS: LOSARTAN 50 MG TAB PO SCH (12:11)
--- NOTE | 2019-04-22 12:17 | HP ---
DATE OF ADMISSION: 04/21/2019 REASON FOR ADMISSION: Back pain and shortness of breath. HISTORY OF PRESENT ILLNESS: This is a 58-year-old female with past medical history of diabetes, hype rtension, GERD who was recently admitted by Dr. Cobb, on 04/16/2019 had cervical prolapse first de gree rectocele, had exploratory lap LELAND/BSO and vaginal vault suspension. According to the notes, th e patient had a good postoperative course. On the second postoperative day, the patient felt good an d no fevers and was discharged home. On discharge, the white count was 12.0. However, according to the patient when she went home, next day she started having pain in her lower back and then in the mays rgical site area. Next day she noted to have fever of 101. Then, the pain went to her right shoulde r and then she started feeling shortness of breath and was brought into the Emergency Department for further evaluation. On arrival to the ED, vital signs had shown initial temperature of 102, heart ra te was 140, blood pressure was 161/82. White count was 21.6, BUN and creatinine within normal limit. The patient had a chest x-ray that showed mild left basilar atelectasis. Patient had a CT of the a bdomen and pelvis that showed changes of hysterectomy with peripherally enhancing central hypodense c ollection in the pelvis, raising concern for an abscess. However, the patient has been seen by Dr. Ashlee raygoza and it was not thought patient needed any surgical intervention. The patient was treated with NS, had vancomycin and Levaquin and Flagyl and was admitted for further management. PAST MEDICAL HISTORY: 1. Diabetes. 2. Hypertension. 3. Obesity. 4. GERD. 5. Arthritis. ALLERGIES: 1. PENICILLINS 2. CODEINE. HOME MEDICATIONS: 1. Metformin 500 b.i.d. 2. Prilosec 40. 3. Cholecalciferol. 4. Ibuprofen. 5. Aspirin 81. 6. Metoprolol 25 b.i.d. 7. Losartan 50. 8. Atorvastatin 20. PAST SURGICAL HISTORY: The patient had left arm surgery, status post fall and had repair. SOCIAL HISTORY: Denies history of smoking, alcohol or any drug use. Currently lives with family. FAMILY HISTORY: Noncontributory. REVIEW OF SYSTEMS: The patient complained of back pain, right upper and right lower quadrant pain, s ome shortness of breath. Denied any cough. Had fevers at home. Patient was urinating every few min utes. Denies any abdominal pain, nausea. Denied any nausea, vomiting, diarrhea. Denied any rash. Denies any hematemesis, any melena, any blood per rectum. PHYSICAL EXAMINATION: VITAL SIGNS: Temperature 102, currently 97.1. Initial pulse was 143, currently 92, respiratory rate 16, blood pressure 142/77, saturating 100% on room air. GENERAL: The patient is awake, alert, oriented, does not appear to be in any acute distress. HEENT: Pupils equal, round, reactive to light. NECK: Supple, no JVD. HEART: Tachycardic. LUNGS: Decreased breath sounds bilaterally. ABDOMEN: Some tenderness present in the right upper quadrant and right lower quadrant. Positive bow el sounds. EXTREMITIES: No clubbing, cyanosis, or edema. SKIN: No rash. Patient had some tenderness in the bilateral flanks. DIAGNOSTIC DATA: Sodium 141, potassium 3.0, chloride 107, bicarbonate 25, BUN of 13, creatinine 0.8. LFTs within normal limit. Alkaline phosphatase was 184, AST was 27, ALT of 27. Troponin less than 0.012. Lipase was 49. White count was 21.6, hemoglobin 11.8, platelet count 345. UA showed 1+ hem oglobin, few bacteria. IMAGING: Patient had a chest x-ray which was essentially negative. CT of the abdomen and pelvis as above with mild cholecystectomy steatosis, cholelithiasis without cholecystitis, mild splenomegaly, b ilateral renal cortical scarring without acute pyelonephritis, moderate to large hiatal hernia, containing umbilical hernia. CT thorax: No evidence of pulmonary embolism, right greater than left posterior lobe segmental atelectasis, hiatal hernia. Gallbladder ultrasound. Mild diffuse increase d hepatic echogenicity consider hepatic cirrhosis, cholelithiasis. ASSESSMENT AND PLAN: This is a 58-year-old female with: 1. Severe sepsis with fevers, tachycardia could be secondary to questionable abscess on the CT of th e abdomen and pelvis. The patient is status post a total abdominal hysterectomy plus BSU versus UTI. Urine culture growing gram-negative rods. The patient with shortness of breath. No evidence of pn eumonia on x-ray. However, the patient could have some component of atelectasis postop. 2. Elevated D-dimer; however, CT angio is negative for pulmonary embolism. 3. Cholelithiasis without evidence of cholecystitis. 4. Moderate hiatal hernia. 5. Obesity. 6. Diabetes. 7. Hypertension. 8. Hyperlipidemia 9. Hypokalemia. PLAN: At this period of time, the patient is admitted to [facility]. The patient is given aggressive IV f luids. The patient has already and has boluses. Currently the patient is feeling much better. We will start the patient on vancomycin and meropenem. ID will also be consulted. We will resume t he patient's home blood pressure medications and diabetic medications. Dr. Cobb already saw the p atient in the ER and there was no indication of any surgical intervention. Rest of the treatment edgar l depend on the patient's hospitalization course. Dictated By: ANITRA CHRISTIANSON/OMKAR Conf#: [id number] DID#: [id number]
--- NOTE | 2019-04-22 17:35 | CONS ---
DATE OF ADMISSION: 04/21/2019 DATE OF CONSULTATION: 04/22/2019 TYPE OF CONSULTATION: Infectious Disease. REASON FOR CONSULTATION: Antibiotic management. HISTORY OF PRESENT ILLNESS: The patient is a 58-year-old female with numerous problems and comes in with shortness of breath. She had a history of hysterectomy 4 days ago and complains of shoulder casandra n as well. Her past problems include: 1. Diabetes. 2. Hypertension. 3. Hyperlipidemia. 4. GERD. 5. Peripheral neuropathy. 6. Obesity. 7. Cervical prolapse. 8. Status post total abdominal hysterectomy and BSO on 04/16/2019. She presents with a 1 day histor y of increasing sharp right-sided chest pain with shortness of breath and subjective fevers. She den ies chest pain. She has mildly diffuse upper abdominal pain, but no nausea, vomiting, constipation, or diarrhea. No dysuria, pyuria, hematuria or flank pain. She has subjective fever and chills. Past problems include left forearm plate and screws x2. She also had a bladder lift. Past problems also include peripheral neuropathy, hypertension, diabetes, hyperlipidemia and GERD as previously outlined. PAST MEDICAL HISTORY: As outlined. FAMILY HISTORY: Noncontributory. SOCIAL HISTORY: She does not smoke, drink or abuse drugs. ALLERGIES: 1. PENICILLIN. 2. CODEINE. NONE TO SULFA OR FOODS. MEDICATIONS: Per chart. REVIEW OF SYSTEMS: As per HPI. MEDICATIONS: Per chart. REVIEW OF SYSTEMS: As per HPI. VITAL SIGNS: On admission, her vital signs were 100, T-max 102.8. LABORATORY DATA: White count 21.6, H and H of 11.8 and 37, platelet count 345,000. BUN and creatini ne 16/0.89, glucose of 164. She had 84% neutrophils. Urinalysis negative for nitrites and leukocyte esterase. HOSPITAL COURSE: The patient was started on vancomycin, Levaquin and Metronidazole. She had sinus tachycardia with a rate of 144. A chest x-ray showed mild left basilar atelectasis. L ungs clear. Heart within normal limits. Mild left basilar atelectasis. CT scan of the abdomen and pelvis showed changes of hysterectomy with peripherally enhancing central hypodense collection center ed in the pelvis having punctate foci of internal gas raising concern for an abscess given the provid ed history of fever. The abnormality is 7.6 x 7 x 6.9 cm located anterior to the rectum. Consider c onsultation to determine the patient may be a candidate for percutaneous drainage or aspiration. The patient has mild hepatic steatosis, cholelithiasis without cholecystitis, mild splenomegaly, bilater al renal cortex scarring without acute pyelonephritis, moderate to large hiatal hernia, aortic athero sclerosis is present, degenerative disk disease, small fat-containing umbilical hernia. Findings wer e discussed with Dr. Cobb. The patient was seen by Dr. Cobb. ASSESSMENT: CT of the chest that showed bilateral lobar atelectasis. She had gallstones and the rad iologist wanted to have an abdominal ultrasound to further describe where the gallstones were. There was no pneumonia. She has hiatal hernia. There are no signs of hematoma on the pelvis. A little a mount of fluid in the pelvis and no sign of abscess of the subcutaneous tissues. She was seen by Dr. Shaw today for back pain and shortness of breath. The patient has severe sepsis with fever, tachy cardia which could be secondary to questionable abscess on the CT scan of the abdomen and pelvis. Ur ine culture growing gram-negative rods. The patient with shortness of breath. No evidence of pneumo la on x-ray. She could have some component of atelectasis postoperatively. PHYSICAL EXAMINATION: VITAL SIGNS: Her temperature was up to 102. Vital signs are stable. Her pulse was 143, currently 9 2. She had signs of SIRS when she came in. SKIN: Without generalized rash. She has some tenderness on her flanks. HEENT: Within normal limits. NECK: Supple. LYMPH NODES: None palpable. CHEST: Decreased breath sounds at the bases. HEART: Tachycardic without murmur or gallop. ABDOMEN: Soft. She has some tenderness in the right upper quadrant and right lower quadrants. EXTREMITIES: Without cyanosis, clubbing, or edema. RECTAL AND GENITAL: Deferred. NEUROLOGIC: No focal neurological abnormality. IMPRESSION AND PLAN: The patient is in telemetry feeling better. She is on vancomycin and meropenem . ID consulted. At present time, no evidence for surgical intervention. I will dictate my findings to Dr. Shaw and Dr. Cobb. Dictated By: MILIND HERZOG MD, JD/OMKAR Conf#: [id number] DID#: [id number] CC: ANITRA SHAW;*End*
[2019-04-22] MEDS: ACETAMINOPHEN 325 MG TAB PO PRN (19:05)
[2019-04-22] MEDS: ATORVASTATIN 20 MG TAB PO SCH (21:23)
--- NOTE | 2019-04-22 22:59 | PN ---
DATE: 04/22/2019 TIME OF PROGRESS NOTE: 2:00 p.m. SUBJECTIVE: The patient feels better, no shortness of breath and accepts that she is here complainin g of back pain and according to her because of being in bed. No right shoulder pain and no right upp er quadrant pain. She had good bowel movement. She has good urine output. OBJECTIVE VITAL SIGNS: She is afebrile since 4:00 a.m. today 04/22/2019. Vital signs are stable. ABDOMEN: Soft. Bowel sounds good. Wound dry. Some ecchymosis noted on the lower mid portion of th e abdomen above the incision. VAGINAL: Pelvic exam revealed the vaginal cuff to be intact and no definite masses felt. Again, the exam was difficult due to obesity. RECTAL: Confirmed the pelvic findings. EXTREMITIES: No calf tenderness. ASSESSMENT AND PLAN: Post total abdominal hysterectomy and bilateral salpingo-oophorectomy 6 days. PLAN: I advised that we should continue with the present antibiotics. Her CBC that was done today, the WBC was 11,000. Hemoglobin of 9, hematocrit 28.9. It went down from 21,000 to 11,000 today. Th e patient feels better, so we will repeat her CBC and CMP tomorrow. May repeat her CT in 2 days. Dictated By: BLADIMIR HUGO/OMKAR Conf#: [id number] DID#: [id number] CC: ANITRA IVAN;*EndCC*
[2019-04-23 00:21] VITALS: BP 138/74; PULSE 85; RESP 18
[2019-04-23] MEDS: SOD CHLORIDE 0.9% 1,000 ML IV SCH ×3 (00:42→17:44)
[2019-04-23] MEDS: VANCOMYCIN 1 GM 250 ML IVPB SCH ×2 (00:42→12:13)
[2019-04-23] MEDS: ACCU-CHEK XX SCH (02:00)
[2019-04-23 04:03] VITALS: BP 142/78; PULSE 93; RESP 18
[2019-04-23] MEDS: PANTOPRAZOLE (EC) 40 MG TAB PO SCH (06:44)
[2019-04-23 07:14] VITALS: BP 167/82; PULSE 91; RESP 20
[2019-04-23] MEDS: INSULIN ASPART [NOVOLOG] 3 ML PEN SC SCH ×4 (07:40→20:51)
[2019-04-23] MEDS: ACETAMINOPHEN 325 MG TAB PO PRN (08:10)
[2019-04-23] MEDS: MEROPENEM 1 GM/50ML(PMX) 50 ML IVPB SCH ×2 (08:12→20:46)
[2019-04-23] MEDS: METOPROLOL 25 MG TAB PO SCH ×2 (08:14→20:46)
[2019-04-23] MEDS: ASPIRIN (EC) 81 MG TAB PO SCH (08:14)
[2019-04-23] MEDS: LOSARTAN 50 MG TAB PO SCH (08:15)
[2019-04-23] MEDS ORDERED: POTASSIUM CHLORIDE (SR) 20 MEQ TAB PO STA (10:39)
[2019-04-23 11:17] VITALS: BP 170/87; PULSE 83; RESP 22
--- NOTE | 2019-04-23 12:50 | PN ---
Date/Time of Note Date/Time of Note DATE: 04/23/19 TIME: 12:50 Assessment/Plan VTE Prophylaxis Risk score (from Ns)>0 risk: 4 SCD applied (from [facility] [place]): No SCD contraindicated: low risk/ambulating Pharmacological prophylaxis: NA/contraindicated Pharm contraindication: low risk/ambulating Lines/Catheters IV Catheter Type (from [facility]): Peripheral IV Urinary Cath still in place: No Assessment/Plan Assessment/Plan is is a 58-year-old female with: 1. Severe sepsis with fevers, tachycardia could be secondary to questionable abscess on the CT of the abdomen and pelvis. The patient is status post a total abdominal hysterectomy plus BSO versus UTI. Urine culture growing gram-negative rods. +Klebsiella The patient with shortness of breath. No evidence of pneumonia on x-ray. However, the patient could have some component of atelectasis postop. 2. Elevated D-dimer; however, CT angio is negative for pulmonary embolism. 3. Cholelithiasis without evidence of cholecystitis. 4. Moderate hiatal hernia. 5. Obesity. 6. Diabetes. 7. Hypertension. Uncontrolled today exacerbated by pain 8. Hyperlipidemia 9. Hypokalemia. Plan -Ibuprofen as needed headache -Decrease NS -Continue with metoprolol/losartan -Hydralazine PRN -Continue with vancomycin and meropenem blood cultures have been negative so far will follow with ID recommendations -Repeat CAT scan tomorrow and chest x-ray Result Diagram: 04/23/19 0525 04/23/19 0525 Results 24hrs Laboratory Tests Test 04/22/19 17:21 04/22/19 21:22 04/23/19 05:25 04/23/19 07:37 Bedside Glucose 88 107 113 White Blood Count 9.0 Red Blood Count 3.33 L Hemoglobin 9.1 L Hematocrit 28.7 L Mean Corpuscular Volume 86.2 Mean Corpuscular 27.3 L Hemoglobin Mean Corpuscular 31.7 L Hemoglobin Concent Red Cell Distribution 14.6 H Width Platelet Count 210 Mean Platelet Volume 10.3 Immature Granulocytes % 0.900 H Neutrophils % 75.8 Lymphocytes % 11.2 L Monocytes % 8.0 Eosinophils % 3.9 Basophils % 0.2 Nucleated Red Blood 0.0 Cells % Immature Granulocytes # 0.080 H Neutrophils # 6.8 Lymphocytes # 1.0 Monocytes # 0.7 Eosinophils # 0.4 Basophils # 0.0 Nucleated Red Blood 0.0 Cells # Sodium Level 140 Potassium Level 3.2 L Chloride Level 108 Carbon Dioxide Level 25 Anion Gap 7 Blood Urea Nitrogen 8 Creatinine 0.67 Est Glomerular Filtrat > 60 Rate mL/min Glucose Level 103 Calcium Level 8.2 L Phosphorus Level 3.4 Magnesium Level 2.0 Total Bilirubin 0.5 Direct Bilirubin 0.00 Indirect Bilirubin 0.5 Aspartate Amino 12 L Transf (AST/SGOT) Alanine 22 Aminotransferase (ALT/SG PT) Alkaline Phosphatase 106 Total Protein 5.5 L Albumin 2.6 L Globulin 2.90 Albumin/Globulin Ratio 0.89 Test 04/23/19 10:50 04/23/19 11:36 Vancomycin Level Trough 7.5 L Bedside Glucose 118 Subjective 24 Hr Interval Summary Free Text/Dictation Slight headache today. BP over 160 No fevers. Pain has been improving Exam/Review of Systems Exam Vitals Vital Signs Date Temp Pulse Resp B/P (MAP) Pulse Ox O2 O2 Flow FiO2 Time Delivery Rate 04/23/19 98.3 83 22 170/87 95 11:17 (114) 04/23/19 Room Air 04:03 Intake and Output 04/22/19 04/22/19 04/23/19 1515:00 23:00 07:00 IntakeIntake Total 1650 ml 2020 ml BalanceBalance 1650 ml 2020 ml Exam GENERAL: The patient is awake, alert, oriented, does not appear to be in any acute distress. HEENT: Pupils equal, round, reactive to light. NECK: Supple, no JVD. HEART: regular breath sounds b/l LUNGS: CTAB ABDOMEN: Some tenderness present in the right upper quadrant and right lower quadrant improved Positive bowel sounds. EXTREMITIES: No clubbing, cyanosis, or edema. SKIN: No rash. Patient had some tenderness in the bilateral flanks.decreased Results Results 24hrs Laboratory Tests Test 04/22/19 17:21 04/22/19 21:22 04/23/19 05:25 04/23/19 07:37 Bedside Glucose 88 107 113 White Blood Count 9.0 Red Blood Count 3.33 L Hemoglobin 9.1 L Hematocrit 28.7 L Mean Corpuscular Volume 86.2 Mean Corpuscular 27.3 L Hemoglobin Mean Corpuscular 31.7 L Hemoglobin Concent Red Cell Distribution 14.6 H Width Platelet Count 210 Mean Platelet Volume 10.3 Immature Granulocytes % 0.900 H Neutrophils % 75.8 Lymphocytes % 11.2 L Monocytes % 8.0 Eosinophils % 3.9 Basophils % 0.2 Nucleated Red Blood 0.0 Cells % Immature Granulocytes # 0.080 H Neutrophils # 6.8 Lymphocytes # 1.0 Monocytes # 0.7 Eosinophils # 0.4 Basophils # 0.0 Nucleated Red Blood 0.0 Cells # Sodium Level 140 Potassium Level 3.2 L Chloride Level 108 Carbon Dioxide Level 25 Anion Gap 7 Blood Urea Nitrogen 8 Creatinine 0.67 Est Glomerular Filtrat > 60 Rate mL/min Glucose Level 103 Calcium Level 8.2 L Phosphorus Level 3.4 Magnesium Level 2.0 Total Bilirubin 0.5 Direct Bilirubin 0.00 Indirect Bilirubin 0.5 Aspartate Amino 12 L Transf (AST/SGOT) Alanine 22 Aminotransferase (ALT/SG PT) Alkaline Phosphatase 106 Total Protein 5.5 L Albumin 2.6 L Globulin 2.90 Albumin/Globulin Ratio 0.89 Test 04/23/19 10:50 04/23/19 11:36 Vancomycin Level Trough 7.5 L Bedside Glucose 118 Medications Medication Current Medications Sodium Chloride 1,000 ml @ 50 mls/hr Q20H IV Last administered on 04/23/19at 00:42; Admin Dose 100 MLS/HR; Start 04/21/19 at 21:34 IV Flush (NS 3 ml) 3 ml PER PROTOCOL IV ; Start 04/21/19 at 22:00 Ondansetron HCl (Zofran Inj) 4 mg Q6H PRN IV NAUSEA/VOMITING; Start 04/21/19 at 22:00 Acetaminophen (Tylenol Tab) 650 mg Q6H PRN PO .PAIN 1-3 OR TEMP Last administered on 04/23/19at 08:10; Admin Dose 650 MG; Start 04/21/19 at 22:00 Docusate Sodium (Colace) 100 mg Q12H PRN PO .CONSTIPATION; Start 04/21/19 at 22:00 Pantoprazole (Protonix Tab) 40 mg DAILY@06 PO Last administered on 04/23/19at 06:44; Admin Dose 40 MG; Start 04/22/19 at 06:00 Vancomycin HCl (Vanco Iv Per Pharmacy) VANCOMYCIN PER PHARMACY PER PROTOCOL XX ; Start 04/21/19 at 22:00 Meropenem/Sodium Chloride 50 ml @ 100 mls/hr Q12 IVPB Last administered on 04/23/19at 08:12; Admin Dose 100 MLS/HR; Start 04/21/19 at 22:00 Diagnostic Test (Pha) (Accu-Chek) 1 ea 02 XX ; Start 04/22/19 at 02:00 Insulin Aspart (Novolog Insulin Pen) NOVOLOG *MILD* ALGORITHM WITH MEALS BEDTIME SC ; Start 04/22/19 at 08:00 Miscellaneous Information 1 ea NOTE XX ; Start 04/21/19 at 22:30 Glucose (Glutose) 15 gm Q15M PRN PO DECREASED GLUCOSE; Start 04/21/19 at 22:30 Glucose (Glutose) 22.5 gm Q15M PRN PO DECREASED GLUCOSE; Start 04/21/19 at 22:30 Dextrose (D50w Syringe) 25 ml Q15M PRN IV DECREASED GLUCOSE; Start 04/21/19 at 22:30 Dextrose (D50w Syringe) 50 ml Q15M PRN IV DECREASED GLUCOSE; Start 04/21/19 at 22:30 Glucagon (Glucagen) 1 mg Q15M PRN IM DECREASED GLUCOSE; Start 04/21/19 at 22:30 Glucose (Glutose) 15 gm Q15M PRN BUCCAL DECREASED GLUCOSE; Start 04/21/19 at 22:30 Vancomycin HCl 250 ml @ 125 mls/hr Q12H IVPB Last administered on 04/23/19at 12:13; Admin Dose 125 MLS/HR; Start 04/22/19 at 12:00 Aspirin (Halfprin) 81 mg DAILY PO Last administered on 04/23/19at 08:14; Admin Dose 81 MG; Start 04/22/19 at 11:00 Atorvastatin Calcium (Lipitor) 20 mg QHS PO Last administered on 04/22/19at 21:23; Admin Dose 20 MG; Start 04/22/19 at 21:00 Losartan Potassium (Cozaar) 50 mg DAILY PO Last administered on 04/23/19at 08:15; Admin Dose 50 MG; Start 04/22/19 at 11:00 Metoprolol Tartrate (Lopressor) 25 mg BID PO Last administered on 04/23/19at 08:14; Admin Dose 25 MG; Start 04/22/19 at 11:00 Ketorolac Tromethamine (Toradol) 30 mg Q6H PRN IV PAIN LEVEL 7-10; Start 04/22/19 at 11:00; Stop 04/25/19 at 10:59 Tramadol HCl (Ultram) 50 mg Q6 PRN NGT PAIN LEVEL 6-10 Last administered on 04/22/19at 12:22; Admin Dose 50 MG; Start 04/22/19 at 11:00 Ibuprofen (Motrin) 400 mg Q6H PRN PO MILD PAIN(1-3) OR TEMP>38C; Start 04/23/19 at 13:00; Status ANITRA WAN MD Apr 23, 2019 12:50
[2019-04-23] MEDS: IBUPROFEN 400 MG TAB PO PRN ×2 (13:33→19:01)
--- NOTE | 2019-04-23 15:04 | CONS ---
Assessment/Plan Assessment/Plan Hospital Course (Demo Recall) Patient is awake looks comfortable no fevers overnight denies pain. WBC 9 H&H 9.1 and 28.7 platelets 210 neutrophils 75.8 BUN 8 creatinine 0.67 Microbiology: Blood cultures negative, urine culture grew Klebsiella 20,000 colonies Allergies: Penicillin Antimicrobials: Vancomycin, meropenem Physical examination: Obese well-developed middle-aged woman who is alert in no distress. Head atraumatic normocephalic. Neck is supple chest rise symmetrical breath sounds clear. Heart: S1-S2. Abdomen soft bowel sounds present. Extremities without cyanosis. Assessment: 1. Status post sepsis 2. Status post UTI 3. Status post recent total abdominal hysterectomy plus BSO 4. Obesity 5. Diabetes Plan: Patient remains stable and overall improving, no evidence of acute cholecystitis per CT, no evidence for pyelonephritis, patient is being seen by surgery, will discontinue vancomycin keep her on meropenem for now Consultation Date/Type/Reason Admit Date/Time Apr 21, 2019 at 19:05 Initial Consult Date Type of Consult id Date/Time of Note DATE: 04/23/19 TIME: 15:03 Exam/Review of Systems Exam Vitals Vital Signs Date Temp Pulse Resp B/P (MAP) Pulse Ox O2 O2 Flow FiO2 Time Delivery Rate 04/23/19 98.3 83 22 170/87 95 11:17 (114) 04/23/19 Room Air 04:03 Intake and Output 04/22/19 04/22/19 04/23/19 1515:00 23:00 07:00 IntakeIntake Total 1650 ml 2020 ml BalanceBalance 1650 ml 2020 ml Results Result Diagram: 04/23/19 0525 04/23/19 0525 Results 24hrs Laboratory Tests Test 04/22/19 17:21 04/22/19 21:22 04/23/19 05:25 04/23/19 07:37 Bedside Glucose 88 107 113 White Blood Count 9.0 Red Blood Count 3.33 L Hemoglobin 9.1 L Hematocrit 28.7 L Mean Corpuscular Volume 86.2 Mean Corpuscular 27.3 L Hemoglobin Mean Corpuscular 31.7 L Hemoglobin Concent Red Cell Distribution 14.6 H Width Platelet Count 210 Mean Platelet Volume 10.3 Immature Granulocytes % 0.900 H Neutrophils % 75.8 Lymphocytes % 11.2 L Monocytes % 8.0 Eosinophils % 3.9 Basophils % 0.2 Nucleated Red Blood 0.0 Cells % Immature Granulocytes # 0.080 H Neutrophils # 6.8 Lymphocytes # 1.0 Monocytes # 0.7 Eosinophils # 0.4 Basophils # 0.0 Nucleated Red Blood 0.0 Cells # Sodium Level 140 Potassium Level 3.2 L Chloride Level 108 Carbon Dioxide Level 25 Anion Gap 7 Blood Urea Nitrogen 8 Creatinine 0.67 Est Glomerular Filtrat > 60 Rate mL/min Glucose Level 103 Calcium Level 8.2 L Phosphorus Level 3.4 Magnesium Level 2.0 Total Bilirubin 0.5 Direct Bilirubin 0.00 Indirect Bilirubin 0.5 Aspartate Amino 12 L Transf (AST/SGOT) Alanine 22 Aminotransferase (ALT/SG PT) Alkaline Phosphatase 106 Total Protein 5.5 L Albumin 2.6 L Globulin 2.90 Albumin/Globulin Ratio 0.89 Test 04/23/19 10:50 04/23/19 11:36 Vancomycin Level Trough 7.5 L Bedside Glucose 118 Medications Medication Current Medications Sodium Chloride 1,000 ml @ 50 mls/hr Q20H IV Last administered on 04/23/19at 00:42; Admin Dose 100 MLS/HR; Start 04/21/19 at 21:34 IV Flush (NS 3 ml) 3 ml PER PROTOCOL IV ; Start 04/21/19 at 22:00 Ondansetron HCl (Zofran Inj) 4 mg Q6H PRN IV NAUSEA/VOMITING; Start 04/21/19 at 22:00 Acetaminophen (Tylenol Tab) 650 mg Q6H PRN PO .PAIN 1-3 OR TEMP Last administered on 04/23/19at 08:10; Admin Dose 650 MG; Start 04/21/19 at 22:00 Docusate Sodium (Colace) 100 mg Q12H PRN PO .CONSTIPATION; Start 04/21/19 at 22:00 Pantoprazole (Protonix Tab) 40 mg DAILY@06 PO Last administered on 04/23/19at 06:44; Admin Dose 40 MG; Start 04/22/19 at 06:00 Vancomycin HCl (Vanco Iv Per Pharmacy) VANCOMYCIN PER PHARMACY PER PROTOCOL XX ; Start 04/21/19 at 22:00 Meropenem/Sodium Chloride 50 ml @ 100 mls/hr Q12 IVPB Last administered on 04/23/19at 08:12; Admin Dose 100 MLS/HR; Start 04/21/19 at 22:00 Diagnostic Test (Pha) (Accu-Chek) 1 ea 02 XX ; Start 04/22/19 at 02:00 Insulin Aspart (Novolog Insulin Pen) NOVOLOG *MILD* ALGORITHM WITH MEALS BEDTIME SC ; Start 04/22/19 at 08:00 Miscellaneous Information 1 ea NOTE XX ; Start 04/21/19 at 22:30 Glucose (Glutose) 15 gm Q15M PRN PO DECREASED GLUCOSE; Start 04/21/19 at 22:30 Glucose (Glutose) 22.5 gm Q15M PRN PO DECREASED GLUCOSE; Start 04/21/19 at 22:30 Dextrose (D50w Syringe) 25 ml Q15M PRN IV DECREASED GLUCOSE; Start 04/21/19 at 22:30 Dextrose (D50w Syringe) 50 ml Q15M PRN IV DECREASED GLUCOSE; Start 04/21/19 at 22:30 Glucagon (Glucagen) 1 mg Q15M PRN IM DECREASED GLUCOSE; Start 04/21/19 at 22:30 Glucose (Glutose) 15 gm Q15M PRN BUCCAL DECREASED GLUCOSE; Start 04/21/19 at 22:30 Aspirin (Halfprin) 81 mg DAILY PO Last administered on 04/23/19at 08:14; Admin Dose 81 MG; Start 04/22/19 at 11:00 Atorvastatin Calcium (Lipitor) 20 mg QHS PO Last administered on 04/22/19at 21:23; Admin Dose 20 MG; Start 04/22/19 at 21:00 Losartan Potassium (Cozaar) 50 mg DAILY PO Last administered on 04/23/19at 08:15; Admin Dose 50 MG; Start 04/22/19 at 11:00 Metoprolol Tartrate (Lopressor) 25 mg BID PO Last administered on 04/23/19at 08:14; Admin Dose 25 MG; Start 04/22/19 at 11:00 Ketorolac Tromethamine (Toradol) 30 mg Q6H PRN IV PAIN LEVEL 7-10; Start 04/22/19 at 11:00; Stop 04/25/19 at 10:59 Tramadol HCl (Ultram) 50 mg Q6 PRN NGT PAIN LEVEL 6-10 Last administered on 04/22/19at 12:22; Admin Dose 50 MG; Start 04/22/19 at 11:00 Ibuprofen (Motrin) 400 mg Q6H PRN PO MILD PAIN(1-3) OR TEMP>38C Last administered on 04/23/19at 13:33; Admin Dose 400 MG; Start 04/23/19 at 13:00 Hydralazine HCl (Apresoline) 10 mg Q6 PRN IV sbp>160; Start 04/23/19 at 13:00 Vancomycin HCl 1.25 gm/Sodium Chloride 250 ml @ 83.333 mls/ hr Q12H IVPB ; Start 04/23/19 at 21:00 Miscellaneous Information (*Rx Drug Level Order Reminder*) VANCO TR 04/25 AT 0800 0800 ONCE XX ; Start 04/25/19 at 08:00; Stop 04/25/19 at 08:01 PIERRE KING NP Apr 23, 2019 15:04
[2019-04-23 15:29] VITALS: BP 144/85; PULSE 84; RESP 22
[2019-04-23 18:53] VITALS: BP 168/86; PULSE 87; RESP 16
[2019-04-23] MEDS: hydrALAzine 20 MG INJ IV PRN (18:59)
--- NOTE | 2019-04-23 19:49 | PN ---
DATE: 04/23/2019 SUBJECTIVE: The patient feels lot better. No shortness of breath. Less incisional pain. No right upper quadrant pain. No right upper arm pain. She had good bowel movement. She had good urine outp ut. OBJECTIVE: VITAL SIGNS: She is afebrile. Vital signs stable. ABDOMEN: Soft. No tenderness noted. Bowel sounds are good. Ecchymosis is still present on the low er abdomen above the mid portion of the incision, but not connected with the incision. GENITOURINARY: No vaginal bleeding noted. EXTREMITIES: No calf tenderness. ASSESSMENT: 1. Postop total abdominal hysterectomy and bilateral salpingo-oophorectomy. 2. Possible pelvic abscess. 3. Atelectasis. 4. Rule out cholecystitis. PLAN: I advised the antibiotics to be continued. Her CBC had been followed. On admission, WBC was 21,000 on 04/22/2019 first day after admission. After the antibiotics, it was 11,000. Today, it is 9000. Hemoglobin and hematocrit are stable. I ordered the repeat CT of the abdomen and pelvis tomor row and then to do a chest x-ray to follow up for atelectasis as well. The plans were explained to t he patient and she understood everything totally. Dictated By: BLADIMIR ECHEVERRIA MD NS/OMKAR Conf#: [id number] DID#: [id number] CC: MILIND HERZOG MD; ANITRA IVAN;*End*
[2019-04-23] MEDS: ATORVASTATIN 20 MG TAB PO SCH (20:45)
[2019-04-23] MEDS ORDERED: VANCOMYCIN HCL 1.25 GM in SOD CHLORIDE 0.9% 250 ML IVPB SCH (21:00)
[2019-04-24] MEDS: ACCU-CHEK XX SCH (02:00)
[2019-04-24] MEDS: hydrALAzine 20 MG INJ IV PRN ×2 (02:19→14:45)
[2019-04-24 02:21] VITALS: BP 169/87; PULSE 86; RESP 18
[2019-04-24] MEDS: IBUPROFEN 400 MG TAB PO PRN ×3 (04:07→17:26)
[2019-04-24] MEDS: PANTOPRAZOLE (EC) 40 MG TAB PO SCH (05:57)
[2019-04-24 07:31] VITALS: BP 176/93; PULSE 96; RESP 17
[2019-04-24] MEDS: INSULIN ASPART [NOVOLOG] 3 ML PEN SC SCH ×4 (08:00→20:26)
[2019-04-24] MEDS: ASPIRIN (EC) 81 MG TAB PO SCH (08:04)
[2019-04-24] MEDS: LOSARTAN 50 MG TAB PO SCH ×2 (08:05→20:19)
[2019-04-24] MEDS: METOPROLOL 25 MG TAB PO SCH ×2 (08:05→20:19)
[2019-04-24] MEDS: MEROPENEM 1 GM/50ML(PMX) 50 ML IVPB SCH ×2 (08:49→20:20)
[2019-04-24] MEDS ORDERED: SOD CHLORIDE 0.9% 100 ML ONE (09:50)
[2019-04-24] MEDS ORDERED: IOHEXOL 300MG/ML 150 ML BTL ONE (09:50)
[2019-04-24] MEDS: SOD CHLORIDE 0.9% 1,000 ML IV SCH (10:20)
[2019-04-24] MEDS ORDERED: POTASSIUM CHLORIDE (SR) 20 MEQ TAB PO STA (10:48)
--- NOTE | 2019-04-24 12:54 | PN ---
Date/Time of Note Date/Time of Note DATE: 04/24/19 TIME: 12:52 Assessment/Plan VTE Prophylaxis Risk score (from Ns)>0 risk: 4 SCD applied (from [facility] [place]): No SCD contraindicated: low risk/ambulating Pharmacological prophylaxis: NA/contraindicated Pharm contraindication: low risk/ambulating Lines/Catheters IV C[facility]ter Type (from [facility]): Peripheral IV Urinary Cath still in place: No Assessment/Plan Assessment/Plan s is a 58-year-old female with: 1. Severe sepsis with fevers, tachycardia could be secondary to questionable abscess on the CT of the abdomen and pelvis. The patient is status post a total abdominal hysterectomy plus BSO versus UTI. Urine culture growing gram-negative rods. +Klebsiella The patient with shortness of breath. No evidence of pneumonia on x-ray. However, the patient could have some component of atelectasis postop. 2. Elevated D-dimer; however, CT angio is negative for pulmonary embolism. 3. Cholelithiasis without evidence of cholecystitis. 4. Moderate hiatal hernia. 5. Obesity. 6. Diabetes. 7. Hypertension. Uncontrolled today exacerbated by pain 8. Hyperlipidemia 9. Hypokalemia. Plan -Ibuprofen as needed headache -dc NS -Patient clinically improved count is completely resolved -Continue with metoprolol/losartan -Hydralazine PRN -CW meropenem meropenem blood cultures have been negative so far will follow with ID recommendations -Repeat CAT scan results pending -leonidas sleep Result Diagram: 04/24/19 0426 04/24/19 0426 Results 24hrs Laboratory Tests Test 04/23/19 17:23 04/23/19 20:50 04/24/19 04:26 04/24/19 08:03 Bedside Glucose 122 106 129 White Blood Count 6.3 # Red Blood Count 3.49 L Hemoglobin 9.6 L Hematocrit 30.1 L Mean Corpuscular Volume 86.2 Mean Corpuscular 27.5 L Hemoglobin Mean Corpuscular 31.9 L Hemoglobin Concent Red Cell Distribution 14.5 Width Platelet Count 228 Mean Platelet Volume 10.4 Immature Granulocytes % 2.200 H Neutrophils % 71.0 Lymphocytes % 13.4 L Monocytes % 8.6 Eosinophils % 4.3 Basophils % 0.5 Nucleated Red Blood 0.0 Cells % Immature Granulocytes # 0.140 H Neutrophils # 4.5 Lymphocytes # 0.8 Monocytes # 0.5 Eosinophils # 0.3 Basophils # 0.0 Nucleated Red Blood 0.0 Cells # Sodium Level 144 Potassium Level 3.1 L Chloride Level 111 H Carbon Dioxide Level 24 Anion Gap 9 Blood Urea Nitrogen 9 Creatinine 0.64 Est Glomerular Filtrat > 60 Rate mL/min Glucose Level 119 Calcium Level 8.2 L Total Bilirubin 0.4 Direct Bilirubin 0.00 Indirect Bilirubin 0.4 Aspartate Amino 16 Transf (AST/SGOT) Alanine 21 Aminotransferase (ALT/SG PT) Alkaline Phosphatase 132 H Total Protein 6.0 L Albumin 2.7 L Globulin 3.30 H Albumin/Globulin Ratio 0.81 Subjective 24 Hr Interval Summary Free Text/Dictation Patient feels better today. Patient states that the abdominal pain is almost gone SBP was high this morning patient said that she could not sleep at night Exam/Review of Systems Exam Vitals Vital Signs Date Temp Pulse Resp B/P (MAP) Pulse Ox O2 O2 Flow FiO2 Time Delivery Rate 04/24/19 98.4 96 17 176/93 96 07:31 (120) 04/23/19 Room Air 18:53 Intake and Output 04/23/19 04/23/19 04/24/19 1515:00 23:00 07:00 IntakeIntake Total 700 ml 400 ml 550 ml BalanceBalance 700 ml 400 ml 550 ml Exam GENERAL: The patient is awake, alert, oriented, does not appear to be in any acute distress. HEENT: Pupils equal, round, reactive to light. NECK: Supple, no JVD. HEART: regular breath sounds b/l LUNGS: CTAB ABDOMEN: Some tenderness present in the right upper quadrant and right lower quadrant improved Positive bowel sounds.resolved EXTREMITIES: No clubbing, cyanosis, or edema. SKIN: No rash. Patient had some tenderness in the bilateral flanks.decreased Results Results 24hrs Laboratory Tests Test 04/23/19 17:23 04/23/19 20:50 04/24/19 04:26 04/24/19 08:03 Bedside Glucose 122 106 129 White Blood Count 6.3 # Red Blood Count 3.49 L Hemoglobin 9.6 L Hematocrit 30.1 L Mean Corpuscular Volume 86.2 Mean Corpuscular 27.5 L Hemoglobin Mean Corpuscular 31.9 L Hemoglobin Concent Red Cell Distribution 14.5 Width Platelet Count 228 Mean Platelet Volume 10.4 Immature Granulocytes % 2.200 H Neutrophils % 71.0 Lymphocytes % 13.4 L Monocytes % 8.6 Eosinophils % 4.3 Basophils % 0.5 Nucleated Red Blood 0.0 Cells % Immature Granulocytes # 0.140 H Neutrophils # 4.5 Lymphocytes # 0.8 Monocytes # 0.5 Eosinophils # 0.3 Basophils # 0.0 Nucleated Red Blood 0.0 Cells # Sodium Level 144 Potassium Level 3.1 L Chloride Level 111 H Carbon Dioxide Level 24 Anion Gap 9 Blood Urea Nitrogen 9 Creatinine 0.64 Est Glomerular Filtrat > 60 Rate mL/min Glucose Level 119 Calcium Level 8.2 L Total Bilirubin 0.4 Direct Bilirubin 0.00 Indirect Bilirubin 0.4 Aspartate Amino 16 Transf (AST/SGOT) Alanine 21 Aminotransferase (ALT/SG PT) Alkaline Phosphatase 132 H Total Protein 6.0 L Albumin 2.7 L Globulin 3.30 H Albumin/Globulin Ratio 0.81 Medications Medication Current Medications Sodium Chloride 1,000 ml @ 50 mls/hr Q20H IV Last administered on 04/23/19at 17:44; Admin Dose 50 MLS/HR; Start 04/21/19 at 21:34 IV Flush (NS 3 ml) 3 ml PER PROTOCOL IV ; Start 04/21/19 at 22:00 Ondansetron HCl (Zofran Inj) 4 mg Q6H PRN IV NAUSEA/VOMITING; Start 04/21/19 at 22:00 Acetaminophen (Tylenol Tab) 650 mg Q6H PRN PO .PAIN 1-3 OR TEMP Last administered on 04/23/19at 08:10; Admin Dose 650 MG; Start 04/21/19 at 22:00 Docusate Sodium (Colace) 100 mg Q12H PRN PO .CONSTIPATION; Start 04/21/19 at 22:00 Pantoprazole (Protonix Tab) 40 mg DAILY@06 PO Last administered on 04/24/19at 05:57; Admin Dose 40 MG; Start 04/22/19 at 06:00 Meropenem/Sodium Chloride 50 ml @ 100 mls/hr Q12 IVPB Last administered on 04/24/19at 08:49; Admin Dose 100 MLS/HR; Start 04/21/19 at 22:00 Diagnostic Test (Pha) (Accu-Chek) 1 ea 02 XX ; Start 04/22/19 at 02:00 Insulin Aspart (Novolog Insulin Pen) NOVOLOG *MILD* ALGORITHM WITH MEALS BEDTIME SC ; Start 04/22/19 at 08:00 Miscellaneous Information 1 ea NOTE XX ; Start 04/21/19 at 22:30 Glucose (Glutose) 15 gm Q15M PRN PO DECREASED GLUCOSE; Start 04/21/19 at 22:30 Glucose (Glutose) 22.5 gm Q15M PRN PO DECREASED GLUCOSE; Start 04/21/19 at 22:30 Dextrose (D50w Syringe) 25 ml Q15M PRN IV DECREASED GLUCOSE; Start 04/21/19 at 22:30 Dextrose (D50w Syringe) 50 ml Q15M PRN IV DECREASED GLUCOSE; Start 04/21/19 at 22:30 Glucagon (Glucagen) 1 mg Q15M PRN IM DECREASED GLUCOSE; Start 04/21/19 at 22:30 Glucose (Glutose) 15 gm Q15M PRN BUCCAL DECREASED GLUCOSE; Start 04/21/19 at 22:30 Aspirin (Halfprin) 81 mg DAILY PO Last administered on 04/24/19at 08:04; Admin Dose 81 MG; Start 04/22/19 at 11:00 Atorvastatin Calcium (Lipitor) 20 mg QHS PO Last administered on 04/23/19at 20:45; Admin Dose 20 MG; Start 04/22/19 at 21:00 Losartan Potassium (Cozaar) 50 mg DAILY PO Last administered on 04/24/19at 08:05; Admin Dose 50 MG; Start 04/22/19 at 11:00 Metoprolol Tartrate (Lopressor) 25 mg BID PO Last administered on 04/24/19at 08:05; Admin Dose 25 MG; Start 04/22/19 at 11:00 Ketorolac Tromethamine (Toradol) 30 mg Q6H PRN IV PAIN LEVEL 7-10; Start 04/22/19 at 11:00; Stop 04/25/19 at 10:59 Tramadol HCl (Ultram) 50 mg Q6 PRN NGT PAIN LEVEL 6-10 Last administered on 04/22/19at 12:22; Admin Dose 50 MG; Start 04/22/19 at 11:00 Ibuprofen (Motrin) 400 mg Q6H PRN PO MILD PAIN(1-3) OR TEMP>38C Last administered on 04/24/19at 10:48; Admin Dose 400 MG; Start 04/23/19 at 13:00 Hydralazine HCl (Apresoline) 10 mg Q6 PRN IV sbp>160 Last administered on 04/24/19at 02:19; Admin Dose 10 MG; Start 04/23/19 at 13:00 ANITRA IVAN MD Apr 24, 2019 12:54
[2019-04-24] MEDS: ACETAMINOPHEN 325 MG TAB PO PRN (12:59)
[2019-04-24] MEDS ORDERED: ZOLPIDEM 5 MG TAB PO PRN (13:00)
--- NOTE | 2019-04-24 13:48 | CONS ---
Assessment/Plan Assessment/Plan Hospital Course (Demo Recall) Patient is doing much better no fevers overnight no nausea vomiting diarrhea no dysuria Microbiology: Blood cultures negative, urine culture grew Klebsiella 20,000 colonies Allergies: Penicillin Antimicrobials: Vancomycin, meropenem CT abd: Loculated appearing gas and fluid collection is again seen in the lower pelvis, measuring approximately 10 cm in maximal dimension, suggestive of abs cess, grossly unchanged in size when compared to the prior CT pls see full report in chart. Physical examination: Obese well-developed middle-aged woman who is alert in no distress. Head atraumatic normocephalic. Neck is supple chest rise symmetrical breath sounds clear. Heart: S1-S2. Abdomen soft bowel sounds present. Extremities without cyanosis. Assessment: 1. Status post sepsis 2. Post-operative abscess 3. Status post recent total abdominal hysterectomy plus BSO 04/16/19 4. Obesity 5. Diabetes Plan: Remain stable, continue on current abx, f/u surgical rec-s Consultation Date/Type/Reason Admit Date/Time Apr 21, 2019 at 19:05 Initial Consult Date Type of Consult id Date/Time of Note DATE: 04/24/19 TIME: 13:46 Exam/Review of Systems Exam Vitals Vital Signs Date Temp Pulse Resp B/P (MAP) Pulse Ox O2 O2 Flow FiO2 Time Delivery Rate 04/24/19 98.4 96 17 176/93 96 07:31 (120) 04/23/19 Room Air 18:53 Intake and Output 04/23/19 04/23/19 04/24/19 1414:59 22:59 06:59 IntakeIntake Total 700 ml 400 ml 550 ml BalanceBalance 700 ml 400 ml 550 ml Results Result Diagram: 04/24/19 0426 04/24/19 0426 Results 24hrs Laboratory Tests Test 04/23/19 17:23 04/23/19 20:50 04/24/19 04:26 04/24/19 08:03 Bedside Glucose 122 106 129 White Blood Count 6.3 # Red Blood Count 3.49 L Hemoglobin 9.6 L Hematocrit 30.1 L Mean Corpuscular Volume 86.2 Mean Corpuscular 27.5 L Hemoglobin Mean Corpuscular 31.9 L Hemoglobin Concent Red Cell Distribution 14.5 Width Platelet Count 228 Mean Platelet Volume 10.4 Immature Granulocytes % 2.200 H Neutrophils % 71.0 Lymphocytes % 13.4 L Monocytes % 8.6 Eosinophils % 4.3 Basophils % 0.5 Nucleated Red Blood 0.0 Cells % Immature Granulocytes # 0.140 H Neutrophils # 4.5 Lymphocytes # 0.8 Monocytes # 0.5 Eosinophils # 0.3 Basophils # 0.0 Nucleated Red Blood 0.0 Cells # Sodium Level 144 Potassium Level 3.1 L Chloride Level 111 H Carbon Dioxide Level 24 Anion Gap 9 Blood Urea Nitrogen 9 Creatinine 0.64 Est Glomerular Filtrat > 60 Rate mL/min Glucose Level 119 Calcium Level 8.2 L Total Bilirubin 0.4 Direct Bilirubin 0.00 Indirect Bilirubin 0.4 Aspartate Amino 16 Transf (AST/SGOT) Alanine 21 Aminotransferase (ALT/SG PT) Alkaline Phosphatase 132 H Total Protein 6.0 L Albumin 2.7 L Globulin 3.30 H Albumin/Globulin Ratio 0.81 Test 04/24/19 12:59 Bedside Glucose 126 Medications Medication Current Medications IV Flush (NS 3 ml) 3 ml PER PROTOCOL IV ; Start 04/21/19 at 22:00 Ondansetron HCl (Zofran Inj) 4 mg Q6H PRN IV NAUSEA/VOMITING; Start 04/21/19 at 22:00 Acetaminophen (Tylenol Tab) 650 mg Q6H PRN PO .PAIN 1-3 OR TEMP Last administered on 04/24/19at 12:59; Admin Dose 650 MG; Start 04/21/19 at 22:00 Docusate Sodium (Colace) 100 mg Q12H PRN PO .CONSTIPATION; Start 04/21/19 at 22:00 Pantoprazole (Protonix Tab) 40 mg DAILY@06 PO Last administered on 04/24/19at 05:57; Admin Dose 40 MG; Start 04/22/19 at 06:00 Meropenem/Sodium Chloride 50 ml @ 100 mls/hr Q12 IVPB Last administered on 04/24/19at 08:49; Admin Dose 100 MLS/HR; Start 04/21/19 at 22:00 Diagnostic Test (Pha) (Accu-Chek) 1 ea 02 XX ; Start 04/22/19 at 02:00 Insulin Aspart (Novolog Insulin Pen) NOVOLOG *MILD* ALGORITHM WITH MEALS BEDTIME SC ; Start 04/22/19 at 08:00 Miscellaneous Information 1 ea NOTE XX ; Start 04/21/19 at 22:30 Glucose (Glutose) 15 gm Q15M PRN PO DECREASED GLUCOSE; Start 04/21/19 at 22:30 Glucose (Glutose) 22.5 gm Q15M PRN PO DECREASED GLUCOSE; Start 04/21/19 at 22:30 Dextrose (D50w Syringe) 25 ml Q15M PRN IV DECREASED GLUCOSE; Start 04/21/19 at 22:30 Dextrose (D50w Syringe) 50 ml Q15M PRN IV DECREASED GLUCOSE; Start 04/21/19 at 22:30 Glucagon (Glucagen) 1 mg Q15M PRN IM DECREASED GLUCOSE; Start 04/21/19 at 22:30 Glucose (Glutose) 15 gm Q15M PRN BUCCAL DECREASED GLUCOSE; Start 04/21/19 at 22:30 Aspirin (Halfprin) 81 mg DAILY PO Last administered on 04/24/19at 08:04; Admin Dose 81 MG; Start 04/22/19 at 11:00 Atorvastatin Calcium (Lipitor) 20 mg QHS PO Last administered on 04/23/19at 20:45; Admin Dose 20 MG; Start 04/22/19 at 21:00 Metoprolol Tartrate (Lopressor) 25 mg BID PO Last administered on 04/24/19at 08: 05; Admin Dose 25 MG; Start 04/22/19 at 11:00 Ketorolac Tromethamine (Toradol) 30 mg Q6H PRN IV PAIN LEVEL 7-10; Start 04/22/19 at 11:00; Stop 04/25/19 at 10:59 Tramadol HCl (Ultram) 50 mg Q6 PRN NGT PAIN LEVEL 6-10 Last administered on 04/22/19at 12:22; Admin Dose 50 MG; Start 04/22/19 at 11:00 Ibuprofen (Motrin) 400 mg Q6H PRN PO MILD PAIN(1-3) OR TEMP>38C Last administered on 04/24/19at 10:48; Admin Dose 400 MG; Start 04/23/19 at 13:00 Hydralazine HCl (Apresoline) 10 mg Q6 PRN IV sbp>160 Last administered on 04/24/19at 02:19; Admin Dose 10 MG; Start 04/23/19 at 13:00 Zolpidem Tartrate (Ambien) 5 mg HS PRN PO INSOMNIA; Start 04/24/19 at 13:00 Losartan Potassium (Cozaar) 50 mg BID PO ; Start 04/24/19 at 21:00 PIERRE KING NP Apr 24, 2019 13:48
[2019-04-24 14:24] VITALS: BP 167/80; PULSE 94; RESP 15
[2019-04-24 16:00] VITALS: BP 155/79
[2019-04-24 19:43] VITALS: BP 161/82; PULSE 90; RESP 16
[2019-04-24] MEDS: ATORVASTATIN 20 MG TAB PO SCH (20:18)
--- NOTE | 2019-04-24 22:38 | PN ---
DATE: 04/24/2019 TIME OF PROGRESS NOTE: 1:30 p.m. SUBJECTIVE: The patient feels good, almost no pain on the incision. She has good bowel movement. She has good urine output. No abdominal pain, no shoulder pain. OBJECTIVE: VITAL SIGNS: She is afebrile. Vital signs stable. ABDOMEN: Soft. No tenderness noted. Still with the ecchymosis present on the lower mid portion of the abdomen. EXTREMITIES: No calf tenderness. ASSESSMENT: Post total abdominal hysterectomy and bilateral salpingo- oophorectomy, day 8. The patient's CBC today where the hemoglobin and hematocrit are stable, WBC is from 21,000 after [address] of the abdomen and pelvis were discussed with the patient, that there is a question of possible abscess in the pelvis about 7 cm. The plans were explained to the patient and asked to go for a CT-guided aspiration and drainage of the abscess or to take only oral or to go home tomorrow if everything is stable and to take oral antibiotics. The pros of the CT-guided aspiration and drainage was explained to her in front of the nurse and the risks, benefits and alternatives were discussed with her or not to do anything and repeat the CT in 1 week, but continue with the oral medication. The risks, benefits and alternatives and other choice were explained to the patient. The patient claims that since she is feeling better, almost no pain and no fever, and 100% better from the time of admission, she did not like to have a CT-guided aspiration of the possible abscess. She wanted to go for the oral medication and to repeat the CT in 1 week. She would like to go home tomorrow, but the repeat CBC to be done. This case was discussed with Dr. Shaw after I saw the patient at 1:[address] Shaw felt that since she is now completely asymptomatic for her, that she would not do any aspiration, that she will be advised to take oral medication and so the patient's also decision was to do the same. She did not like any aspiration of the cyst. So, she will be followed up tomorrow and possible discharge tomorrow. Dictated By: BLADIMIR HUGO/OMKAR Conf#: [id number] DID#: [id number] CC: ANITRA SHAW; BLADIMIR ECHEVERRIA MD;*EndCC* MTDD
[2019-04-25] MEDS: ACCU-CHEK XX SCH (01:23)
[2019-04-25 01:39] VITALS: BP 161/87; PULSE 99; RESP 16
[2019-04-25] MEDS: IBUPROFEN 400 MG TAB PO PRN ×2 (02:50→09:18)
[2019-04-25] MEDS: PANTOPRAZOLE (EC) 40 MG TAB PO SCH (05:36)
[2019-04-25 07:43] VITALS: BP 139/75; PULSE 92; RESP 17
[2019-04-25] MEDS: INSULIN ASPART [NOVOLOG] 3 ML PEN SC SCH ×2 (08:00→12:00)
[2019-04-25] MEDS: MEROPENEM 1 GM/50ML(PMX) 50 ML IVPB SCH (08:39)
[2019-04-25] MEDS: LOSARTAN 50 MG TAB PO SCH (08:40)
[2019-04-25] MEDS: ASPIRIN (EC) 81 MG TAB PO SCH (08:40)
[2019-04-25] MEDS: METOPROLOL 25 MG TAB PO SCH (08:40)
[2019-04-25] MEDS ORDERED: POTASSIUM CHLORIDE (SR) 20 MEQ TAB PO STA (10:24)
--- NOTE | 2019-04-25 12:47 | PDOCDIS ---
Discharge Instructions DIAGNOSIS Discharge Diagnosis sepsis CONDITION [id number] Patient Condition: [id number] Fair HOME CARE INSTRUCTIONS: [id number] Diet Instructions: [id number] Regular ACTIVITY: [id number] Activity Restrictions: [id number] Slowly Increase Activity Rest between Activity Avoid heavy lifting FOLLOW UP/APPOINTMENTS Follow-up Plan Fu Dr Roque in 1 week fu PCP in 1-2 weeks return to ER if has abdominal oain /fevers/chills ANITRA IVAN MD Apr 25, 2019 12:47
[2019-04-25] MEDS ORDERED: METR500T PO (12:48)
[2019-04-25] MEDS ORDERED: LEVO500T48 PO (12:48)
--- NOTE | 2019-04-25 16:39 | DS ---
DATE OF ADMISSION: 04/21/2019 DATE OF DISCHARGE: 04/25/2019 HISTORY OF PRESENTING ILLNESS AND HOSPITAL COURSE: This is a 58-year-old female with a past medical history of diabetes, hypertension, GERD, who was recently admitted by Dr. Cobb on 04/16/2019, had cervical prolapse, first degree rectocele, had exploratory laparotomy, LELAND and BSO and vaginal suspen maycol done. According to the notes, the patient had good postop course. Second postop day, the patie nt felt good. No fevers. She was discharged home. On discharge, the white count was 12. According to the patient when she went home next day, she started having some pain in the lower back in the mays rgical site area. She noted to have fevers of 101. The pain moved to her right shoulder. She start ed having some shortness of breath and came to the emergency department for further evaluation. On a rrival to ED, temperature was 102, heart rate 114, blood pressure 161/82. White count was 21.6. BUN and creatinine within normal limit. The patient had infectious workup and chest x-ray that showed m ild left basilar atelectasis. She had a CT of the abdomen and pelvis that showed changes of hysterec yadiel with peripherally enhancing central hypodense collection in the pelvis raising concern for an ab scess. The patient was seen immediately by Dr. Cobb on admission and the patient was started on b road spectrum IV antibiotics with vancomycin and meropenem. However, the patient responded very nice ly to the antibiotics. Next day, the white count went down to 11.0. The patient was afebrile. Bloo d cultures were negative. The urine culture only showed Klebsiella pneumoniae 10,000 to 20,000 which are susceptible to gentamicin, Cipro, cefotaxime and cephalosporins. The patient's condition got mu ch, much better with IV antibiotics. She also had CT of the chest that showed no evidence of pulmona ry embolism which was done due to elevated D-dimer. The patient had moderate to large hiatal hernia. Since the patient's condition was improving clinically, there were no surgical interventions planne d with Dr. Cobb. The patient had repeat CT of the abdomen and pelvis on 04/24/2019 that showed lo culated appearing gas and fluid collection seen in the lower pelvis measuring about 10 cm in maximal dimension, suggestive of abscess that grossly unchanged in size. The case was discussed with Dr. Choco lawler who spoke to the patient and also gave her the option of going for surgery versus conservative m anagement. Since the patient's clinical condition had improved drastically and the patient was afebr ile, white count came back normal and the patient was feeling both better clinically and also lab-wis e, it was decided as per patient's choice not to go for any surgery. The patient will follow up with Dr. Roque in about [address] scan. FINAL DISCHARGE DIAGNOSES: 1. Septic shock could be secondary to abscess, status post TAHBSO; however per Dr. Cobb, it could be also due to surgery. The patient had improved both clinically and lab-iqbal, white count on disch arge came down to 5.9. 2. Postop abscess. 3. Status post total abdominal hysterectomy plus BSO on 04/16/2019. 4. Urinary tract infection, however, not significant colony-forming units. 5. Diabetes. 6. Hypertension. DISCHARGE CONDITION: Stable. DISCHARGE DIET: Regular diet. DISCHARGE MEDICATIONS: 1. Levaquin 500 mg p.o. daily for 10 days. 2. Flagyl 500 mg p.o. q.8 for 10 days. 3. Aspirin 81. 4. Atorvastatin 20. 5. Cholecalciferol. 6. Ibuprofen. 7. Losartan 50. 8. Metformin 500 b.i.d. with meals. 9. Metoprolol 25 b.i.d. 10. Prilosec 40. DISCHARGE INSTRUCTIONS: The patient was instructed to follow up with Dr. Cobb in about 1 week for possible repeat CT scan and return to ER if she has severe abdominal pain, nausea, vomiting, fevers or chills. Dictated By: ANITRA CHRISTIANSON/OMKAR Conf#: [id number] DID#: [id number] CC: MILIND HERZOG MD;*End*
--- NOTE | 2019-04-25 18:15 | PN ---
DATE: 04/25/2019 SUBJECTIVE: The patient feels good, minimal lower abdominal pain, good urine output and good bowel m ovement. The patient claims that she feels very good and she hardly has any pain. She has a slight vaginal discharge like pinkish discharge. OBJECTIVE: VITAL SIGNS: She is afebrile. Vital signs are stable. ABDOMEN: Soft. Bowel sounds good. Wound is dry and clean. No sign of infection. She states the e cchymosis is present but lesser in size. PELVIC: Light clear discharge from the vagina. The vaginal cuff is intact. EXTREMITIES: No calf tenderness. ASSESSMENT: Post-total abdominal hysterectomy and bilateral salpingo-oophorectomy day 9. The plans were explained in front of the nurse and she understood everything totally. She does not l carlo to have any aspiration drainage under CT guidance. She wanted to go home. She wanted to take or al medication and to be followed up by me. The case will be discussed with Dr. Shaw. She will be discharged home today on general diet. The activities are restricted. She will be given Levaquin 50 0 mg daily and then Flagyl 500 mg 3 times a day. She will see me back in the clinic in 1 week. I wi ll talk to Dr. Shaw when she makes rounds at the hospital. The patient was instructed. She was co unseled. Dictated By: LBADIMIR HUGO/OMKAR Conf#: [id number] DID#: [id number] CC: ANITRA SHAW;*EndCC*
== END 2019-04-25 14:15 | disposition home or self-care (01) | DRG 862 ==
LOC: E/R 16:46 → 6WM 19:05 → 2NE 04-23 18:25
PROVIDERS: ADMIT Internal Medicine; ATTEND Internal Medicine
DX: T81.49XA Infection following a procedure, other surgical site, initial encounter (principal); A41.9 Sepsis, unspecified organism; R65.21 Severe sepsis with septic shock; N39.0 Urinary tract infection, site not specified; T81.44XA Sepsis following a procedure, initial encounter; E87.6 Hypokalemia; K80.20 Calculus of gallbladder without cholecystitis without obstruction; N73.9 Female pelvic inflammatory disease, unspecified; I10 Essential (primary) hypertension; E78.5 Hyperlipidemia, unspecified; E11.42 Type 2 diabetes mellitus with diabetic polyneuropathy; E66.9 Obesity, unspecified; K44.9 Diaphragmatic hernia without obstruction or gangrene; K21.9 Gastro-esophageal reflux disease without esophagitis; Z79.84 Long term (current) use of oral hypoglycemic drugs; Z79.82 Long term (current) use of aspirin; Z88.0 Allergy status to penicillin; Z90.710 Acquired absence of both cervix and uterus; Z90.722 Acquired absence of ovaries, bilateral; Z90.79 Acquired absence of other genital organ(s)
CPT/HCPCS: 36415; 71045; 71046; 71275; 74177; 74178; 76705; 80053; 80202; 81001; 82962; 83036; 83605; 83690; 83735; 84100; 84484; 85025; 85378; 85610; 85730; 87086; 93005; 96374; 96375; J0360; J1815; J1885; J1956; J2185; J3370; J7030; J7040; J7050; Q9967